=== PATIENT | male | born 1980 | race Two or more races ===

== ENCOUNTER 2020-03-06 13:11 | Emergency (ER) | payer OTHER, SELFPAY ==
[2020-03-06 13:26] VITALS: BP 122/76; PULSE 85; RESP 18; TEMP 36.6; O2SAT 98; BMI 31.7
--- NOTE | 2020-03-06 13:38 | XR_ITS ---
EXAMINATION: XR CHEST CLINICAL INFORMATION: Pain COMPARISON: Previous chest x-ray March 2016 TECHNIQUE: 2 views of the chest were obtained. FINDINGS: No significant abnormality is noted involving the heart, lungs, mediastinum, bony thorax or soft tissues. XR/XR chest 2V IMPRESSION: Unremarkable examination.
--- NOTE | 2020-03-06 13:38 | ECG_ITS ---
Test Reason : CHEST WALL PAIN Blood Pressure : / mmHG Vent. Rate : 060 BPM Atrial Rate : 060 BPM P-R Int : 142 ms QRS Dur : 084 ms QT Int : 426 ms P-R-T Axes : 036 002 019 degrees QTc Int : 426 ms Normal sinus rhythm Normal ECG When compared with ECG of 10-JAN-2020 13:52, No significant change was found Heart rate has decreased Referred By: Alexandre Small Electronically Signed By:PARKER KENNEDY MD
--- NOTE | 2020-03-06 13:41 | ED_ITS ---
HPI - Anxiety General Chief Complaint: Anxiety <LINDA Krishnamurthy Last Filed: 03/06/20 21:35> Stated Complaint: ANXIETY <LINDA Krishnamurthy Last Filed: 03/06/20 21:35> Time Seen by Provider: 03/06/20 13:38 <LINDA Krishnamurthy Last Filed: 03/06/20 21:35> History of Present Illness HPI narrative: Patient complains of several days of feeling very anxious, with of feeling of palpitations, chest pain with deep breath, episodes of shortness of breath accompanied by hyperventilation with some tingling in the fingertips and similar to many prior episodes of anxiety attacks He was recently started on a medication Zoloft for anxiety by his primary care doctor about a week ago and says that item it has not yet reduced his generalized anxiety He is not suicidal he has no feelings of self-harm or injury, no drugs or alcohol <LINDA Krishnamurthy Last Filed: 03/06/20 21:35> Related Data Home Medications: Previous Rx's Medication Instructions Recorded ketoconazole 2 % topical cream 1 applic TOPICAL DAILY 30 Days #30 03/02/20 g lorazepam 0.5 mg tablet 0.5 mg PO BEDTIME 7 Days #7 tab 03/02/20 pantoprazole 20 mg tablet,delayed 20 mg PO DAILY 30 Days #30 tab 03/02/20 release sertraline 50 mg tablet 50 mg PO DAILY 30 Days #30 tab 03/02/20 lorazepam [Ativan] 0.5 mg PO TID PRN #20 tab 03/06/20 <LINDA Krishnamurthy Last Filed: 03/06/20 21:35> Allergies/Adverse Reactions: Allergies Allergy/AdvReac Type Severity Reaction Status Date / Time No Known Allergies Allergy Unknown Verified 03/02/20 15:35 <LINDA Krishnamurthy Last Filed: 03/06/20 21:35> Review of Systems Review of Systems: Positive for anxiety chest pain and palpitations Negative for headache dizziness weakness fever chills fainting, no abdominal pain or vomiting, no skin rash no difficulty ambulating or speaking <LINDA Krishnamurthy Last Filed: 03/06/20 21:35> Yes all other systems are reviewed and are negative <LINDA Krishnamurthy Last Filed: 11/23/20 21:35> PMF[facility] Past Medical History Attestation statement: The following information was validated with the patient. <LINDA Krishnamurthy - Last Filed: 03/06/20 21:35> [facility] Narrative: Medical history is prior history of anxiety, he does smoke cigarettes <LINDA Krishnamurthy - Last Filed: 03/06/20 21:35> Family History Family History: Family History (Updated 03/02/20 @ 15:45 by Felix Junior PA-C) Mother Diabetes Hypertension Breast cancer Cirrhosis of liver Brother Cirrhosis of liver Father Cancer Esophageal cancer <LINDA Krishnamurthy - Last Filed: 03/06/20 21:35> Social History Social History: Social History (Updated 03/02/20 @ 15:46 by Felix Junior PA-C) Alcohol intake: unknown Smoking Status: Unknown if ever smoked Tobacco Type: Cigarette Substance Use Type: Marijuana <LINDA Krishnamurthy - Last Filed: 03/06/20 21:35> Physical Exam Vital Signs: Vital Signs: Last Vital Signs Temp 97.8 F 03/06/20 13:26 Pulse 85 03/06/20 13:26 Resp 18 03/06/20 13:26 BP 122/76 03/06/20 13:26 Pulse Ox 98 03/06/20 13:26 Body Mass Index 31.7 <LINDA Krishnamurthy - Last Filed: 03/06/20 21:35> Vital Signs: Last Vital Signs Temp 97.8 F 03/06/20 13:26 Pulse 85 03/06/20 13:26 Resp 18 03/06/20 13:26 BP 122/76 03/06/20 13:26 Pulse Ox 98 03/06/20 13:26 Body Mass Index 31.7 <Vincenzo Nicolas MD - Last Filed: 03/15/20 07:02> General appearance comfortable cooperative no acute distress A&O x3 The pharynx is clear, well hydrated The neck is supple The chest is clear to auscultation bilaterally with full symmetrical equal breath sounds, there is mild tenderness to the chest wall and pain is reproduced with a deep breath The heart rate and rhythm regular, no murmurs Abdomen soft nontender Extremities full range of motion x4 Neuro cranial nerves 2-12 intact as tested Gait and speech are normal and appropriate Motor is 5 over 5 times for and sensation is intact and symmetrical <LINDA Krishnamurthy - Last Filed: 03/06/20 21:35> Course Course Course Narrative: Patient with similar symptoms to prior episodes of anxiety attacks head EKG and chest x-ray done with no acute findings and was discharged with treatment for anxiety <LINDA Krishnamurthy - Last Filed: 03/06/20 21:35> I have reviewed the chart <Vincenzo Nicolas MD - Last Filed: 03/15/20 07:02> MDM - Anxiety ECG Data Attestation: I personally reviewed and interpreted this ECG as follows: <LINDA Krishnamurthy Last Filed: 03/06/20 21:35> Interpretation: EKG was normal sinus rhythm at a rate of 60 p.r. was 142 QRS was 84 QT was normal and no evidence of acute ischemic change <LINDA Krishnamurthy Last Filed: 03/06/20 21:35> Discharge Plan Discharge Clinical Impression: Anxiety <LINDA Krishnamurthy Last Filed: 03/06/20 21:35> Patient Disposition: Home, Self-Care <LINDA Krishnamurthy - Last Filed: 03/06/20 21:35> Additional Instructions: Your EKG and chest x-ray did not reveal any dangerous condition The symptoms are consistent with previous anxiety episodes so we are giving you Ativan as a rescue medication use only if needed continue the Zoloft prescribed by her doctors it may take several weeks to have an effect and may be need to be adjusted to maximum affect Return any concerns <LINDA Krishnamurthy Last Filed: 03/06/20 21:35> Prescriptions: New lorazepam [Ativan] 0.5 mg tablet 0.5 mg PO TID PRN (Reason: anxiety) Qty: 20 RF: 0 No Action sertraline [Zoloft] 50 mg tablet 50 mg PO DAILY 30 Days Qty: 30 RF: 1 ketoconazole 2 % cream 1 applic topical DAILY 30 Days Qty: 30 RF: 0 pantoprazole 20 mg tablet,delayed release (DR/EC) 20 mg PO DAILY 30 Days Qty: 30 RF: 3 lorazepam 0.5 mg tablet 0.5 mg PO BEDTIME 7 Days Qty: 7 RF: 0 <LINDA Krishnamurthy Last Filed: 03/06/20 21:35> Interventions: ED Discharge Assessment Last Done: 03/06/20 15:25 <LINDA Krishnamurthy - Last Filed: 03/06/20 21:35> Discharge Date/Time: 03/06/20 15:27 <LINDA Krishnamurthy - Last Filed: 03/06/20 21:35>
== END 2020-03-06 15:27 | disposition home or self-care (01) ==
PROVIDERS: Emergency Provider Emergency Medicine; PCP Physician Assistant
DX: F41.1 Generalized anxiety disorder (principal); F43.0 Acute stress reaction; F17.210 Nicotine dependence, cigarettes, uncomplicated; Z71.6 Tobacco abuse counseling; F12.90 Cannabis use, unspecified, uncomplicated; Z79.899 Other long term (current) drug therapy
CPT/HCPCS: 71046; 93005; 99283; 99284

== ENCOUNTER 2020-03-28 09:56 | Outpatient (REF) | payer OTHER, SELFPAY ==
[2020-03-28 11:28] LABS: MANUAL DIFF FLAG NO
[2020-03-28 11:41] LABS: Basophils Absolute Auto 0.1 X10*3/uL (0.0-0.2); Basophils Percent Auto 0.6 % (0-2); Eosinophils Absolute Auto 0.2 X10*3/uL (0.0-0.4); Eosinophils Percent Auto 2.2 % (0-4); Hematocrit 45.3 % (42-52); Hemoglobin 15.1 g/dl (14.0-18.0); Imm Gran Abs Auto 0.02 X10*3/uL (0.00-0.03); Imm Gran Pct Auto 0.2 % (0.0-0.4); Lymphocytes Absolute Auto 2.3 X10*3/uL (1.2-4.9); Lymphocytes Percent Auto 26.5 % (20-40); Mean Corpuscular HGB Conc 33.3 g/dl (31.0-36.0); Mean Corpuscular Hemoglobin 32.3 pg (27.0-33.0); Mean Corpuscular Volume 96.8 fL (80-98); Mean Platelet Volume 11.6 fL (9.4-12.4); Monocytes Absolute Auto 0.8 X10*3/uL (0.1-1.2); Monocytes Percent Auto 9.7 % (2-11); Neutrophils Absolute Auto 5.2 X10*3/uL (2.0-8.3); Neutrophils Percent Auto 60.8 % (45-73); Platelet Count 265 X10*3/uL (160-400); Red Blood Count 4.68 X10*6/uL (4.60-5.80); Red Cell Distribution Width 12.7 % (11.0-16.0); White Blood Count 8.6 X10*3/uL (4.8-10.8)
[2020-03-28 11:53] LABS: Estimated Average Glucose 91 mg/dL; Hemoglobin A1c % 4.8 %
[2020-03-28 12:16] LABS: Alanine Aminotransferase 117 U/L (0-40); Albumin Level 4.4 g/dL (3.5-5.0); Alkaline Phosphatase 57 U/L (39-117); Anion Gap 14 (12-20); Aspartate Amino Transferase 57 U/L (5-37); Bilirubin Direct 0.4 mg/dL (0.0-0.5); Bilirubin Total 0.9 mg/dL (0.0-1.0); Blood Urea Nitrogen 15 mg/dL (9-16); Calcium 9.1 mg/dL (8.4-10.2); Carbon Dioxide 25 mmol/L (22-29); Chloride 102 mmol/L (96-108); Cholesterol 148 mg/dL; Estimated Glomerular Filt Rate > 60; Glucose Fasting 92 mg/dL (60-99); HDL Cholesterol 37 mg/dL; LDL Cholesterol Calculated 97 mg/dl; Potassium 4.3 mmol/l (3.3-5.1); Sodium 137 mmol/L (135-145); Total Protein 7.5 g/dL (6.5-8.0); Triglycerides 73 mg/dL
[2020-03-28 12:30] LABS: Alanine Aminotransferase 118 U/L (0-40); Albumin Level 4.5 g/dL (3.5-5.0); Alkaline Phosphatase 59 U/L (39-117); Anion Gap 13 (12-20); Aspartate Amino Transferase 56 U/L (5-37); Blood Urea Nitrogen 15 mg/dL (9-16); Calcium 9.3 mg/dL (8.4-10.2); Carbon Dioxide 27 mmol/L (22-29); Chloride 102 mmol/L (96-108); Cholesterol 148 mg/dL; Estimated Glomerular Filt Rate > 60; Glucose Fasting 93 mg/dL (60-99); HDL Cholesterol 37 mg/dL; LDL Cholesterol Calculated 96 mg/dl; Potassium 4.2 mmol/l (3.3-5.1); Sodium 138 mmol/L (135-145); Total Protein 7.6 g/dL (6.5-8.0); Triglycerides 75 mg/dL
[2020-03-28 12:32] LABS: TSH reflex Free T4 0.73 mIU/mL (0.32-4.0)
[2020-03-28 12:37] LABS: Vitamin D 25-OH Total 7.4 ng/mL (>30)
[2020-03-29 08:51] LABS: Syphilis Screen Nonreactive (Nonreactive)
[2020-03-30 04:08] LABS: HBc Num1 0.08 S/CO (0.00-0.79); HIV AB/AG Nonreactive (Nonreactive); HIV Num 1 0.06 S/CO (0.00-0.99); Hepatitis B Core Antibody Nonreactive (Nonreactive); Hepatitis B Surface Antigen Negative (Negative)
[2020-03-30 04:34] LABS: HBS Num1 1.79 mIU/mL (0-7.99); ~HepC Num1 0.09 S/CO (0.00-0.79); ~Hepatitis B Surface Antibody NONREACTIVE (Nonreactive); ~Hepatitis C Antibody Nonreactive (Nonreactive)
[2020-04-04 18:21] LABS: Chlamydia Pneumoniae IgM <1:10 titer (<1:10); Chlamydia Pneumoniae Interp. Past Infection; Chlamydia Psittaci IgA <1:16 titer (<1:16); Chlamydia Psittaci IgG <1:64 titer (<1:64); Chlamydia Psittaci IgM <1:10 titer (<1:10); Chlamydia Trachomatis IgA <1:16 titer (<1:16); Chlamydia Trachomatis IgG <1:64 titer (<1:64); Chlamydia Trachomatis IgM <1:10 titer (<1:10)
== END 2020-03-28 09:57 | disposition home or self-care (01) ==
LOC: HO.LAB 09:56
PROVIDERS: PCP Physician Assistant; Visit Provider Physician Assistant
DX: Z20.828 Contact with and (suspected) exposure to other viral communicable diseases (principal); Z13.1 Encounter for screening for diabetes mellitus; F41.1 Generalized anxiety disorder; Z11.3 Encounter for screening for infections with a predominantly sexual mode of transmission; K27.9 Peptic ulcer, site unspecified, unspecified as acute or chronic, without hemorrhage or perforation; Z13.29 Encounter for screening for other suspected endocrine disorder
CPT/HCPCS: 36415; 80053; 80061; 80076; 82248; 82306; 83036; 84443; 85025; 86631; 86632; 86704; 86706; 86780; 86803; 87340; 87389; U0003

== ENCOUNTER 2020-04-09 21:31 | Emergency (ER) | payer OTHER, SELFPAY ==
--- NOTE | 2020-04-09 | ECG_ITS ---
Test Reason : CHEST/EPIGASTRIC PAIN Blood Pressure : / mmHG Vent. Rate : 075 BPM Atrial Rate : 075 BPM P-R Int : 156 ms QRS Dur : 078 ms QT Int : 424 ms P-R-T Axes : 053 005 006 degrees QTc Int : 473 ms Normal sinus rhythm Normal ECG When compared with ECG of 06-MAR-2020 14:53, No significant change was found Referred By: Generic ED Physician Electronically Signed By:TOOTIE SALAZAR
[2020-04-09 21:42] VITALS: BP 105/69; PULSE 89; RESP 16; TEMP 36.9; O2SAT 97; BMI 28.7
[2020-04-09 22:59] LABS: Basophils Percent Auto 0.4 % (0-2); Eosinophils Absolute Auto 0.1 X10*3/uL (0.0-0.4); Eosinophils Percent Auto 0.8 % (0-4); Hematocrit 47.6 % (42-52); Hemoglobin 15.9 g/dl (14.0-18.0); Imm Gran Abs Auto 0.03 X10*3/uL (0.00-0.03); Imm Gran Pct Auto 0.3 % (0.0-0.4); Lymphocytes Absolute Auto 2.4 X10*3/uL (1.2-4.9); Lymphocytes Percent Auto 24.9 % (20-40); MANUAL DIFF FLAG NO; Mean Corpuscular HGB Conc 33.4 g/dl (31.0-36.0); Mean Corpuscular Hemoglobin 32.6 pg (27.0-33.0); Mean Corpuscular Volume 97.5 fL (80-98); Mean Platelet Volume 10.7 fL (9.4-12.4); Monocytes Percent Auto 10.3 % (2-11); Neutrophils Percent Auto 63.3 % (45-73); Platelet Count 231 X10*3/uL (160-400); Red Blood Count 4.88 X10*6/uL (4.60-5.80); Red Cell Distribution Width 12.8 % (11.0-16.0); White Blood Count 9.5 X10*3/uL (4.8-10.8)
[2020-04-09 23:00] VITALS: BP 124/76; PULSE 76; RESP 14; O2SAT 97
--- NOTE | 2020-04-09 23:15 | ED.ABDPAIN ---
HPI - Abdominal Pain General Chief Complaint: Abdominal Pain Stated Complaint: abdominal pain Time Seen by Provider: 04/09/20 22:04 Source: patient Mode of arrival: ambulatory History of Present Illness HPI narrative: This is a 39-year-old male who presents with complaints of worsening epigastric discomfort over the past 2-3 days that he attributes to ongoing stressors in his life. He states that he was recently started on ulcer medication and based on description sounds like this is likely Carafate but states that due to his ongoing separation from his significant other he has been unable to have access to the medication. He denies alcohol use or drug use other than marijuana. He denies any hematemesis or melena, denies fevers, chills, nausea. Related Data Home Medications Medication Instructions Recorded Confirmed ibuprofen 600 mg tablet 600 mg PO Q6H PRN 03/28/20 03/28/20 Previous Rx's Medication Instructions Recorded ketoconazole 2 % topical cream 1 applic TOPICAL DAILY 30 Days #30 03/02/20 g pantoprazole 20 mg tablet,delayed 20 mg PO DAILY 30 Days #30 tab 03/02/20 release lorazepam 0.5 mg tablet 0.5 mg PO TID PRN #20 tab 03/28/20 sucralfate 1 gram tablet 1 g PO BID 10 Days #20 tab 03/28/20 omeprazole 40 mg PO BID 30 Days #60 cap 04/10/20 Allergies Allergy/AdvReac Type Severity Reaction Status Date / Time No Known Allergies Allergy Unknown Verified 04/09/20 21:41 Review of Systems Review of Systems Pertinent positives and negatives as stated in the HPI and 10 point review of systems is otherwise negative. Physical Exam Vital Signs: Vital Signs: Last Vital Signs Temp 98.5 F 04/09/20 21:42 Pulse 76 04/09/20 23:00 Resp 14 04/09/20 23:00 BP 124/76 04/09/20 23:00 Pulse Ox 97 04/09/20 23:00 Body Mass Index 28.7 VITAL SIGNS: Reviewed. GENERAL: Well developed, well nourished, in no acute distress. HEAD: Normocephalic/atraumatic, EYES: PERRLA, EOMI intact without pain EARS: Ext canals without abnormality, TMs non-bulging and non-erythematous NOSE: Nares patent bilateral NECK: Supple, no adenopathy LUNGS: Normal breath sounds. No adventitious sounds or accessory muscle use. SpO2<97> CARDIOVASCULAR: Regular rate and rhythm without noted murmurs, no JVD or lower extremity edema. ABDOMEN: Soft, tenderness to the epigastrium area without rebound, non-distended with bowel sounds. No rigidity. No guarding. No palpable masses or hernias noted NEUROLOGIC: Alert and oriented x 4. Course Course Course Narrative: This is a 39-year-old male with history and clinical presentation most consistent with likely gastritis and +/- ulcer and no evidence of bleeding. Will evaluate for alternative etiologies such as pancreatitis or gallbladder disease but feel that this is less likely. -labs, a panel, UA, PRATHER, GI cocktail, Pepcid On re-evaluation patient has had improvement of his symptoms and all investigations were reviewed without any acute findings. All results and findings discussed with patient at bedside. MDM - Abdominal Pain Lab Data Result diagrams: 04/09/20 22:54 04/09/20 22:54 Labs: Lab Results 04/09/20 04/09/20 04/09/20 Range/Units 22:54 22:54 22:54 WBC 9.5 (4.8-10.8) X10*3/uL RBC 4.88 (4.60-5.80) X10*6/uL Hgb 15.9 (14.0-18.0) g/dl Hct 47.6 (42-52) % MCV 97.5 (80-98) fL MCH 32.6 (27.0-33.0) pg MCHC 33.4 (31.0-36.0) g/dl RDW 12.8 (11.0-16.0) % Plt Count 231 (160-400) X10*3/uL MPV 10.7 (9.4-12.4) fL Immature Gran % (Auto) 0.3 (0.0-0.4) % Neut % (Auto) 63.3 (45-73) % Lymph % (Auto) 24.9 (20-40) % [place] % (Auto) 10.3 (2-11) % Eos % (Auto) 0.8 (0-4) % Baso % (Auto) 0.4 (0-2) % Lymph # (Auto) 2.4 (1.2-4.9) X10*3/uL [place] # (Auto) 1.0 (0.1-1.2) X10*3/uL Eos # (Auto) 0.1 (0.0-0.4) X10*3/uL Baso # (Auto) 0.0 (0.0-0.2) X10*3/uL Abs Immat Gran (auto) 0.03 (0.00-0.03) X10*3/uL Absolute Neuts (auto) 6.0 (2.0-8.3) X10*3/uL Absolute Nucleated RBC 0.000 (0.0-0.012) X10*3/uL Nucleated RBC % (auto) 0.0 (0.0-0.2) /100WBC Sodium 139 (135-145) mmol/L Potassium 4.1 (3.3-5.1) mmol/l Chloride 104 (96-108) mmol/L Carbon Dioxide 24 (22-29) mmol/L Anion Gap 15 (12-20) BUN 16 (9-16) mg/dL Creatinine 0.88 (0.5-1.4) mg/dL Estim Creat Clear Calc 117.7 Estimated GFR > 60 Random Glucose 97 (60-115) mg/dL Calcium 9.4 (8.4-10.2) mg/dL Total Bilirubin 1.0 (0.0-1.0) mg/dL AST 65 H (5-37) U/L ALT 140 H (0-40) U/L Alkaline Phosphatase 59 (39-117) U/L Total Protein 7.8 (6.5-8.0) g/dL Albumin 4.8 (3.5-5.0) g/dL Lipase 15 (8-78) U/L Urine Color Urine Appearance Urine pH (5.0-8.0) Ur Specific [place] (1.005-1.025) Urine Protein (NEG-TRACE) MG/DL Urine Glucose (UA) (NEG) MG/DL Urine Ketones (NEG) MG/DL Urine Blood (NEG) Urine Nitrite (NEG) Ur Leukocyte Esterase (NEG) Urine RBC (0) /HPF Urine WBC (0-4) /HPF Ur Squamous Epith Cells /LPF Urine Bacteria /LPF Urine Mucus /LPF Urine Opiates Screen (Not Detect) Ur Barbiturates Screen (Not Detect) Ur Phencyclidine Scrn (Not Detect) Ur Amphetamines Screen (Not Detect) U Benzodiazepines Scrn (Not Detect) Urine Cocaine Screen (Not Detect) U Marijuana (THC) Screen (Not Detect) Ethyl Alcohol < 10 mg/dL 04/09/20 04/09/20 Range/Units 23:42 23:42 WBC (4.8-10.8) X10*3/uL RBC (4.60-5.80) X10*6/uL Hgb (14.0-18.0) g/dl Hct (42-52) % MCV (80-98) fL MCH (27.0-33.0) pg MCHC (31.0-36.0) g/dl RDW (11.0-16.0) % Plt Count (160-400) X10*3/uL MPV (9.4-12.4) fL Immature Gran % (Auto) (0.0-0.4) % Neut % (Auto) (45-73) % Lymph % (Auto) (20-40) % [place] % (Auto) (2-11) % Eos % (Auto) (0-4) % Baso % (Auto) (0-2) % Lymph # (Auto) (1.2-4.9) X10*3/uL [place] # (Auto) (0.1-1.2) X10*3/uL Eos # (Auto) (0.0-0.4) X10*3/uL Baso # (Auto) (0.0-0.2) X10*3/uL Abs Immat Gran (auto) (0.00-0.03) X10*3/uL Absolute Neuts (auto) (2.0-8.3) X10*3/uL Absolute Nucleated RBC (0.0-0.012) X10*3/uL Nucleated RBC % (auto) (0.0-0.2) /100WBC Sodium (135-145) mmol/L Potassium (3.3-5.1) mmol/l Chloride (96-108) mmol/L Carbon Dioxide (22-29) mmol/L Anion Gap (12-20) BUN (9-16) mg/dL Creatinine (0.5-1.4) mg/dL Estim Creat Clear Calc Estimated GFR Random Glucose (60-115) mg/dL Calcium (8.4-10.2) mg/dL Total Bilirubin (0.0-1.0) mg/dL AST (5-37) U/L ALT (0-40) U/L Alkaline Phosphatase (39-117) U/L Total Protein (6.5-8.0) g/dL Albumin (3.5-5.0) g/dL Lipase (8-78) U/L Urine Color YELLOW Urine Appearance CLEAR Urine pH 6.0 (5.0-8.0) Ur Specific [place] >= 1.030 H (1.005-1.025) Urine Protein TRACE (NEG-TRACE) MG/DL Urine Glucose (UA) NEG (NEG) MG/DL Urine Ketones 40 (NEG) MG/DL Urine Blood TRACE (NEG) Urine Nitrite NEG (NEG) Ur Leukocyte Esterase NEG (NEG) Urine RBC 1-4 (0) /HPF Urine WBC 1-4 (0-4) /HPF Ur Squamous Epith Cells 1+ /LPF Urine Bacteria 1+ /LPF Urine Mucus 2+ /LPF Urine Opiates Screen Not Detected (Not Detect) Ur Barbiturates Screen Not Detected (Not Detect) Ur Phencyclidine Scrn Not Detected (Not Detect) Ur Amphetamines Screen Not Detected (Not Detect) U Benzodiazepines Scrn Not Detected (Not Detect) Urine Cocaine Screen Not Detected (Not Detect) U Marijuana (THC) Screen POSITIVE H (Not Detect) Ethyl Alcohol mg/dL Discharge Plan Discharge Clinical Impression: Gastritis Patient Disposition: Home, Self-Care Instructions: Gastritis (ED), Diet for Stomach Ulcers and Gastritis (ED) Additional Instructions: - Please do not hesitate to return should you experience any acute worsening such as vomiting blood, worsening abdominal pain. - You should avoid ibuprofen, Motrin, Aleve, Naprosyn at present as this can make your symptoms worse. - stop taking the pantoprazole Prescriptions: New omeprazole 40 mg capsule,delayed release(DR/EC) 40 mg PO BID 30 Days Qty: 60 RF: 0 No Action ketoconazole 2 % cream 1 applic topical DAILY 30 Days Qty: 30 RF: 0 pantoprazole 20 mg tablet,delayed release (DR/EC) 20 mg PO DAILY 30 Days Qty: 30 RF: 3 ibuprofen 600 mg tablet 600 mg PO Q6H PRN (Reason: pain) RF: 0 lorazepam [Ativan] 0.5 mg tablet 0.5 mg PO TID PRN (Reason: anxiety) Qty: 20 RF: 1 sucralfate [Carafate] 1 gram tablet 1 g PO BID 10 Days Qty: 20 RF: 1 Referrals: Ricardo Doe MD [Physician] - 2 days (Please evaluate this patient for suspected PUD. While evaluated here in the emergency department he was started on twice daily omeprazole and instructed to stop NSAIDs.) [facility] Past Medical History Source: nursing notes reviewed Surgical History No history of previous surgery Family History Family History Mother Diabetes Hypertension Breast cancer Cirrhosis of liver Brother Cirrhosis of liver Father Cancer Esophageal cancer Social History Social History Alcohol intake: never Smoking Status: Current every day smoker Tobacco Type: Cigarette Substance Use Type: Marijuana Advance Directives: No Advance Directives Information Provided: No
[2020-04-09 23:24] LABS: Ethanol < 10 mg/dL
[2020-04-09 23:29] LABS: Alanine Aminotransferase 140 U/L (0-40); Albumin Level 4.8 g/dL (3.5-5.0); Alkaline Phosphatase 59 U/L (39-117); Anion Gap 15 (12-20); Aspartate Amino Transferase 65 U/L (5-37); Blood Urea Nitrogen 16 mg/dL (9-16); Calcium 9.4 mg/dL (8.4-10.2); Carbon Dioxide 24 mmol/L (22-29); Chloride 104 mmol/L (96-108); Creatinine Clr Calc Pharmacy 117.7; Estimated Glomerular Filt Rate > 60; Glucose Random 97 mg/dL (60-115); Lipase 15 U/L (8-78); Potassium 4.1 mmol/l (3.3-5.1); Sodium 139 mmol/L (135-145); Total Protein 7.8 g/dL (6.5-8.0)
[2020-04-09] MEDS: Famotidine/PF 20 MG/2 ML VIAL IVPUSH (23:43)
[2020-04-09] MEDS: Lidocaine HCl Viscous 2 % 15 ML SOLUTION 10 ML MUCOUS MEM (23:43)
[2020-04-09] MEDS: Magnesium Hydrox/Alum Hydrox 30 ML ORAL.SUSP PO (23:43)
[2020-04-09 23:54] LABS: Glucose Urine UA NEG (NEG); Leukocyte Esterase Urine NEG (NEG); Nitrite Urine NEG (NEG); Specific Gravity - Urine >= 1.030 (1.005-1.025); Urine Blood TRACE (NEG); Urine Ketones 40 MG/DL (NEG); Urine Protein TRACE MG/DL (NEG-TRACE)
[2020-04-09 23:55] LABS: Appearance Urine CLEAR; Color Urine YELLOW
[2020-04-10 00:01] LABS: Bacteria Urine 1+ /LPF; Mucus Urine 2+ /LPF; Squamous Epithelial Cell Urine 1+ /LPF
[2020-04-10 00:21] LABS: Amphetamine Screen Urine Not Detected (Not Detect); Barbiturates, Urine Not Detected (Not Detect); Benzodiazepines Screen Urine Not Detected (Not Detect); Cannabinoid Screen Urine POSITIVE (Not Detect); Cocaine Screen Urine Not Detected (Not Detect); Opiate Screen Urine Not Detected (Not Detect); Phencyclidine Screen Urine Not Detected (Not Detect)
[2020-04-10 01:10] VITALS: BP 113/70; PULSE 64; RESP 16; O2SAT 98
--- NOTE | 2020-04-10 01:11 | PC.NURSE ---
PT REPORTS EPIGASTRIC PAIN IMPROVED, NOW 07/22. PT DRANK A CAN OF SONALI ALISSON, NO NAUSEA OR VOMITING.
== END 2020-04-10 01:21 | disposition home or self-care (01) ==
PROVIDERS: Emergency Provider Student in an Organized Health Care Education/Training Program
DX: R10.13 Epigastric pain (principal)
CPT/HCPCS: 36415; 80053; 80307; 80320; 81001; 83690; 85025; 93005; 96374; 99284

== ENCOUNTER 2020-05-03 17:05 | Outpatient (REF) | payer OTHER, SELFPAY | END 2020-05-03 17:06 | disposition home or self-care (01) | LOC: HO.WFDLNP 17:05 | PROVIDERS: Visit Provider Internal Medicine | DX: Z20.822 Contact with and (suspected) exposure to COVID-19 (principal) | CPT/HCPCS: C9803; U0003 ==

== ENCOUNTER 2020-07-20 13:19 | Outpatient (REF) | payer OTHER, SELFPAY ==
[2020-07-20 13:53] LABS: COVID-19 Test Negative (Negative)
== END 2020-07-20 13:20 | disposition home or self-care (01) ==
LOC: HO.LAB 13:19
PROVIDERS: Visit Provider Internal Medicine
DX: Z20.822 Contact with and (suspected) exposure to COVID-19 (principal)
CPT/HCPCS: 36415; 87635; C9803

== ENCOUNTER 2020-08-12 17:10 | Emergency (ER) | payer OTHER, SELFPAY ==
[2020-08-12 17:16] VITALS: BP 116/59; PULSE 57; RESP 18; TEMP 36.6; O2SAT 97; BMI 25.8
--- NOTE | 2020-08-12 17:50 | ED.EYEPROB ---
HPI - Eye Problem General Chief complaint: Eye Problems Stated complaint: eye infection Time Seen by Provider: 08/12/20 17:26 Source: patient Mode of arrival: ambulatory Limitations: no limitations History of Present Illness HPI Narrative: 39-year-old male with no significant past medical history presents with 3 days of upper eyelid swelling and pain. States that it started off as a small area of swelling, and then spread over to the rest of his eyelid. He has been using warm compresses, and states the swelling is in his line of vision. He does not report any visual changes, denies fevers, chills, nasal congestion sinus pain, ear pain, difficulty swallowing, pain on ocular movement, double vision, or any other concerning symptoms. He does not use contact lenses, denies risk of foreign body, glaucoma, or trauma. MD chief complaint: eye redness Onset (ago): day(s) (3) Onset description: gradual Duration: constant Location: left eye Eye Symptoms: redness Place: home Mechanism: none Severity: moderate Severity scale (1-10): 5 If Pain, Quality: burning and aching Associated symptoms: none Treatments Prior to Arrival: other (Warm compresses) Related Data Patient tetanus UTD: No Home Medications Medication Instructions Recorded Confirmed ibuprofen 600 mg tablet 600 mg PO Q6H PRN 03/28/20 03/28/20 Previous Rx's Medication Instructions Recorded ketoconazole 2 % topical cream 1 applic TOPICAL DAILY 30 Days #30 03/02/20 g pantoprazole 20 mg tablet,delayed 20 mg PO DAILY 30 Days #30 tab 03/02/20 release lorazepam 0.5 mg tablet 0.5 mg PO TID PRN #20 tab 03/28/20 sucralfate 1 gram tablet 1 g PO BID 10 Days #20 tab 03/28/20 omeprazole 40 mg PO BID 30 Days #60 cap 04/10/20 Allergies Allergy/AdvReac Type Severity Reaction Status Date / Time No Known Allergies Allergy Unknown Verified 04/09/20 21:41 Review of Systems Review of Systems: Constitutional: No Fever, No Chills ENT/Mouth: No Ear Pain, No Hoarseness, No sore throat Eyes: Left eyelid pain and swelling, No Eye Pain, No Redness, No Foreign Body Cardiovascular: No Chest Pain, No SOB Respiratory: No Cough, No Dyspnea Gastrointestinal: No Nausea, No Vomiting, No Diarrhea, No abdominal Pain Genitourinary: No Dysuria, No Hematuria Musculoskeletal: No joint pain, No Myalgias, No Joint Swelling Skin: No Skin lacerations, No rash Neuro: No Weakness, No Numbness, No Paresthesias, No Loss of Consciousness, No Dizziness, No Headache Psych: No Anxiety/Panic, No Depression Heme/Lymph: no easy bruising, no Lymphadenopathy Endocrine: No Polyuria, No Polydipsia Yes all other systems are reviewed and are negative [facility] Past Medical History Attestation statement: The following information was validated with the patient. Source: old records reviewed Medical History (Updated 08/12/20 @ 17:50 by Annita Almonte NP) Ulcer Surgical History No history of previous surgery Family History Family History Mother Diabetes Hypertension Breast cancer Cirrhosis of liver Brother Cirrhosis of liver Father Cancer Esophageal cancer Social History Social History Alcohol intake: never Smoking Status: Current every day smoker Tobacco Type: Cigarette Substance Use Type: Marijuana Advance Directives: No Advance Directives Information Provided: Yes Physical Exam Vital Signs: Vital Signs: Last Vital Signs Temp 97.9 F 08/12/20 17:16 Pulse 57 08/12/20 17:16 Resp 18 08/12/20 17:16 BP 116/59 L 08/12/20 17:16 Pulse Ox 97 08/12/20 17:16 Body Mass Index 25.8 Appearance: Alert. Oriented X3. No acute distress. Eyes: Pupils equal, round and reactive to light. EOMI, no pain on extraocular movement, left eyelid edematous, erythematous, consistent with hordeolum. Funduscopic exam is normal. ENT: Pharynx normal. Neck: Normal inspection. Neck supple. CVS: Normal heart rate and rhythm. Pulses normal. Respiratory: No respiratory distress. Breath sounds normal. Abdomen: Soft and nontender. Skin: Skin warm and dry. Normal skin color. Normal skin turgor. Extremities: No lower extremity edema. Neuro: No motor deficit. No sensory deficit. Course Course Course Narrative: 39-year-old male presents with 3 days left eyelid swelling, progressively getting worse. He has been using warm compresses with poor effect. Funduscopic exam is normal, PERRLA, EOMI, sclera nonicteric, conjunctiva non erythematous. At this time I do not feel it necessary for fluorescein testing as there is low risk for foreign body, no change in vision. Plan is for erythromycin eye ointment, Keflex, and update Tdap vaccine. Patient verbalized understanding of and agrees to plan of care discharge home. MDM - Eye Problem MDM Narrative Medical decision making narrative: chalazion, hordeolum, blepharitis Differential Diagnosis Differential diagnosis: Likely periorbital cellulitis Medical Records Attestation: I reviewed the patient's medical records. Discharge Plan Discharge Clinical Impression: Edema of left eyelid Hordeolum Qualifiers: Hordeolum type: externum Laterality: left Eyelid: upper Qualified Code(s): H00.014 - Hordeolum externum left upper eyelid Patient Disposition: Home, Self-Care Instructions: [place] (ED) Additional Instructions: You were evaluated for left eyelid swelling and pain. You have a hordeolum, and eyelid cellulitis. Please use erythromycin eye ointment every 4 hours while awake for the next 5 days. Please wash your hand before and after applying this eye ointment. Please take Keflex 500 mg every 8 hours for the next 7 days. We updated your Tdap vaccine. If symptoms persist, please follow-up with Optometry. I gave you phone number for Dr. Cline. Thank you for choosing this emergency department for evaluation. Please follow-up with primary care physician as needed. Return to the emergency department for any new, concerning, or worsening symptoms. Prescriptions: No Action omeprazole 40 mg capsule,delayed release(DR/EC) 40 mg PO BID 30 Days Qty: 60 RF: 0 ketoconazole 2 % cream 1 applic topical DAILY 30 Days Qty: 30 RF: 0 pantoprazole 20 mg tablet,delayed release (DR/EC) 20 mg PO DAILY 30 Days Qty: 30 RF: 3 ibuprofen 600 mg tablet 600 mg PO Q6H PRN (Reason: pain) RF: 0 lorazepam [Ativan] 0.5 mg tablet 0.5 mg PO TID PRN (Reason: anxiety) Qty: 20 RF: 1 sucralfate [Carafate] 1 gram tablet 1 g PO BID 10 Days Qty: 20 RF: 1 Referrals: Noe Cline [Physician] - 2 days (Left upper eyelid hordeolum) Interventions: ED Discharge Assessment Last Done: 08/12/20 18:16 Discharge Date/Time: 08/12/20 18:21
[2020-08-12] MEDS: Erythromycin Base 0.5% Oph Oin 1 GM TUBE 1 CM EYE-LEFT (18:05)
[2020-08-12] MEDS: Diphth,Pertus(ACell),Tet Adult 0.5 ML SYRINGE IM (18:05)
[2020-08-12] MEDS: cephALEXin 500 MG CAPSULE PO (18:05)
== END 2020-08-12 18:21 | disposition home or self-care (01) ==
PROVIDERS: Emergency Provider Emergency Medicine
DX: H00.014 Hordeolum externum left upper eyelid (principal); H57.12 Ocular pain, left eye; F17.210 Nicotine dependence, cigarettes, uncomplicated; Z71.6 Tobacco abuse counseling; F12.90 Cannabis use, unspecified, uncomplicated
CPT/HCPCS: 90471; 90715; 99283

== ENCOUNTER 2020-09-05 09:05 | Outpatient (REF) | payer OTHER, SELFPAY ==
--- NOTE | ~2020-09-05 | XR_ITS ---
EXAMINATION: XR HAND, RIGHT XR HAND, LEFT CLINICAL INFORMATION: Pain. COMPARISON: None TECHNIQUE: AP, oblique, and lateral views of the right and left hand. FINDINGS: Right Hand: No fracture or dislocation. Normal carpal alignment. No significant joint space narrowing or marginal osteophytes. No osseous erosion. No periarticular osteopenia. No abnormal soft tissue calcification. Left Hand: No fracture or dislocation. Normal carpal alignment. No significant joint space narrowing or marginal osteophytes. No osseous erosion. No periarticular osteopenia. No abnormal soft tissue calcification. XR/XR hand LT 2V IMPRESSION: Right Hand: Unremarkable examination. Left Hand: Unremarkable examination.
--- NOTE | ~2020-09-05 | XR_ITS ---
EXAMINATION: XR HAND, RIGHT XR HAND, LEFT CLINICAL INFORMATION: Pain. COMPARISON: None TECHNIQUE: AP, oblique, and lateral views of the right and left hand. FINDINGS: Right Hand: No fracture or dislocation. Normal carpal alignment. No significant joint space narrowing or marginal osteophytes. No osseous erosion. No periarticular osteopenia. No abnormal soft tissue calcification. Left Hand: No fracture or dislocation. Normal carpal alignment. No significant joint space narrowing or marginal osteophytes. No osseous erosion. No periarticular osteopenia. No abnormal soft tissue calcification. XR/XR hand RT 2V IMPRESSION: Right Hand: Unremarkable examination. Left Hand: Unremarkable examination.
[2020-09-05 10:17] LABS: C Reactive Protein 0.04 mg/dL (< or = 0.50)
[2020-09-05 10:58] LABS: Rheumatoid Factor < 15.0 IU/mL (<15.0)
[2020-09-07 13:47] LABS: Anti Nuclear Antibody Screen NEGATIVE (NEGATIVE)
== END 2020-09-05 09:06 | disposition home or self-care (01) ==
LOC: HO.LAB 09:05
PROVIDERS: PCP Physician Assistant; Visit Provider Physician Assistant
DX: M79.641 Pain in right hand (principal); M79.642 Pain in left hand
CPT/HCPCS: 36415; 73120; 86038; 86039; 86140; 86431

== ENCOUNTER 2020-12-19 11:27 | Outpatient (REF) | payer OTHER, SELFPAY ==
[2020-12-19 12:41] LABS: Alanine Aminotransferase 45 U/L (0-40); Albumin Level 4.4 g/dL (3.5-5.0); Alkaline Phosphatase 60 U/L (39-117); Anion Gap 11 (12-20); Aspartate Amino Transferase 31 U/L (5-37); Bilirubin Total 0.4 mg/dL (0.0-1.0); Blood Urea Nitrogen 18 mg/dL (9-16); Calcium 9.5 mg/dL (8.4-10.2); Carbon Dioxide 26 mmol/L (22-29); Chloride 107 mmol/L (96-108); Cholesterol 176 mg/dL; Estimated Glomerular Filt Rate > 60; Glucose Fasting 90 mg/dL (60-99); HDL Cholesterol 47 mg/dL; LDL Cholesterol Calculated 110 mg/dl; Potassium 4.3 mmol/L (3.3-5.1); Sodium 140 mmol/L (135-145); Total Protein 7.2 g/dL (6.5-8.0); Triglycerides 95 mg/dL
[2020-12-19 13:09] LABS: Prostate Specific Antigen Scr 0.22 ng/mL (<0.05-4.0); TSH reflex Free T4 0.65 uIU/mL (0.32-4.0)
[2020-12-19 13:32] LABS: Estimated Average Glucose 91 mg/dL; Hemoglobin A1c % 4.8 %
== END 2020-12-19 11:28 | disposition home or self-care (01) ==
LOC: HO.LAB 11:27
PROVIDERS: PCP Physician Assistant; Visit Provider Physician Assistant
DX: Z12.5 Encounter for screening for malignant neoplasm of prostate (principal); Z13.29 Encounter for screening for other suspected endocrine disorder; Z13.220 Encounter for screening for lipoid disorders
CPT/HCPCS: 36415; 80053; 80061; 83036; 84153; 84443

== ENCOUNTER 2021-01-11 10:25 | Outpatient (REF) | payer OTHER, SELFPAY ==
--- NOTE | 2021-01-11 10:28 | EMG_ITS ---
Bilateral median and ulnar motor and sensory studies were performed. Bilateral radial sensory studies were performed and paraspinal muscles were tested. IMPRESSION: 1. Mild bilateral ulnar neuropathy across cubital tunnel. 2. Mild right median neuropathy across carpal tunnel. MD LEONARDO Hirsch/CHARLI / [id number]
== END 2021-01-11 10:26 | disposition home or self-care (01) ==
LOC: HO.NEURO 10:25
PROVIDERS: PCP Physician Assistant; Visit Provider Physician Assistant
DX: G56.00 Carpal tunnel syndrome, unspecified upper limb (principal)
CPT/HCPCS: 95886; 95911

== ENCOUNTER → 2021-01-30 14:46 | Outpatient (BNVA) | payer OTHER, SELFPAY | PROVIDERS: Visit Provider Orthopaedic Surgery | DX: G56.01 Carpal tunnel syndrome, right upper limb (principal); G56.23 Lesion of ulnar nerve, bilateral upper limbs | CPT/HCPCS: 99202 ==

== ENCOUNTER 2021-02-12 05:59 | Day surgery (SDC) | payer OTHER, SELFPAY ==
--- NOTE | 2021-02-09 09:10 | P.CONAN_ITS ---
Documented by User: Iman Lerma NP 02/09/21 09:11 HPI - Anesthesia Eval Consult details Narrative: 40yo M for Right Carpal Tunnel Release, Cubital Tunnel vs Transposition PMFSH Active Problems Active Problems: All Active Problems (Updated 02/02/21 @ 14:23 by Vandana Avelar RN) PUD (peptic ulcer disease) (Acute) Screening for hypothyroidism (Acute) Screening for diabetes mellitus (DM) (Acute) Screening for hypercholesterolemia (Acute) Tinea pedis (Acute) MDD (major depressive disorder) (Acute) NATALIE (generalized anxiety disorder) (Acute) Exposure to COVID-19 virus (Acute) Screening for STD (sexually transmitted disease) (Acute) Hordeolum (Acute) Bilateral hand pain (Acute) CTS (carpal tunnel syndrome) (Acute) Annual physical exam (Acute) NATALIE (generalized anxiety disorder) (Acute) Median nerve neuropathy (Acute) Carpal tunnel syndrome of right wrist (Acute) Cubital tunnel syndrome on right (Acute) Cubital tunnel syndrome on left (Acute) Past Medical History Medical History Anxiety and depression Asthma GI bleed PUD (peptic ulcer disease) Ulcer Family History Family History Mother Diabetes Hypertension Breast cancer Cirrhosis of liver Brother Cirrhosis of liver Father Cancer Esophageal cancer Surgical History Surgical History (Updated 02/12/21 @ 08:27 by Ana Marley MD) History of esophagogastroduodenoscopy (EGD) History of testicular surgery Social History Social History (Updated 02/12/21 @ 08:27 by Ana Marley MD) Housing: Apartment Alcohol intake: never Patient Tobacco Use Status: Never used Tobacco e-Cigarette/Vaping Use: Never Used Second Hand Smoke Exposure: No Use of substances other than those prescribed or required for medical reasons: Yes Substance Use Type: Marijuana Last Used Substance: Days (ago) Are you DNR?: No Advance Directives: No Advance Directives Information Provided: Yes Recently lost weight without trying: No Nutrition Risks: No Nutritional Risk service: No Current occupational status: unemployed 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 Meds Allergies Allergy/AdvReac Type Severity Reaction Status Date / Time No Known Allergies Allergy Unknown Verified 02/02/21 14:23 Home Medications Medication Instructions Recorded Confirmed Last Taken Type ibuprofen 600 mg tablet 600 mg PO Q6H PRN 03/28/20 02/02/21 Unknown History sertraline 25 mg tablet 1 tab PO DAILY 02/02/21 02/02/21 Unknown History Exam Exam Date and Time: February 09, 2021 0910 Pertinent Lab Results Pertinent Lab Results: Laboratory Tests 04/09/20 12/19/20 22:54 11:53 WBC 9.5 Hgb 15.9 Hct 47.6 Plt Count 231 Sodium 140 Potassium 4.3 Chloride 107 Carbon Dioxide 26 BUN 18 H Creatinine 0.96 Narrative Narrative: EKG 03/2020 Vent. Rate : 075 BPM ? ? Atrial Rate : 075 BPM ?? P-R Int : 156 ms? QRS Dur : 078 ms ? ? QT Int : 424 ms ? ? ? P-R-T Axes : 053 005 006 degrees ?? QTc Int : 473 ms ? Normal sinus rhythm Normal ECG When compared with ECG of 06-MAR-2020 14:53, No significant change was found Assessment and Plan Assessment Anesthesia Assessment: Chart Reviewed Documented by User: Ana Marley MD 02/12/21 08:29 [facility] Past Medical History Medical History Anxiety and depression Asthma GI bleed PUD (peptic ulcer disease) Ulcer Family History Family History Mother Diabetes Hypertension Breast cancer Cirrhosis of liver Brother Cirrhosis of liver Father Cancer Esophageal cancer Family history of problems with anesthesia: No Surgical History Surgical History (Updated 02/12/21 @ 08:27 by Ana Marley MD) History of esophagogastroduodenoscopy (EGD) History of testicular surgery History of Problems with Anesthesia: No Social History Social History (Updated 02/12/21 @ 08:27 by Ana Marley MD) Housing: Apartment Alcohol intake: never Patient Tobacco Use Status: Never used Tobacco e-Cigarette/Vaping Use: Never Used Second Hand Smoke Exposure: No Use of substances other than those prescribed or required for medical reasons: Yes Substance Use Type: Marijuana Last Used Substance: Days (ago) Are you DNR?: No Advance Directives: No Advance Directives Information Provided: Yes Recently lost weight without trying: No Nutrition Risks: No Nutritional Risk service: No Current occupational status: unemployed 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 Meds Allergies Allergy/AdvReac Type Severity Reaction Status Date / Time No Known Allergies Allergy Unknown Verified 02/02/21 14:23 Home Medications Medication Instructions Recorded Confirmed Last Taken Type ibuprofen 600 mg tablet 600 mg PO Q6H PRN 03/28/20 02/02/21 Unknown History sertraline 25 mg tablet 1 tab PO DAILY 02/02/21 02/02/21 Unknown History Exam Height,Weight and Vital Signs: Height 5 ft 8 in Weight 76.657 kg Vital Signs Temp Pulse Resp BP Pulse Ox 02/12/21 06:17 97.8 F 67 16 113/70 96 Airway Mallampati Class: II TM Dist: >3cm Neck ROM: Full Loose/Missing/Broken Teeth: Yes (Some missing, front) Heart: RRR Lungs: CTAB Assessment and Plan Assessment Anesthesia Assessment: Anesthesia Plan Discussed Final Anesthetic Review Family History of Problems with Anesthesia: No History of Problems with Anesthesia: No NPO: Yes ASA Class: II Final Preanesthetic Review: No Changes in Pt Med Stat, Meds/Allgs Chart Revie fri, Consent Obtained/Reviewed and Anes Risks/Benef Reviewed Patient Risk: Low Procedure Risk: Low Anesthetic Plan Anesthetic Plan: GA Disposition: Standard PACU
[2021-02-12] VITALS (7 sets, daily range): BP systolic 112–133; BP diastolic 65–80; PULSE 56–67; RESP 16; TEMP 36.5–36.6; O2SAT 96–98; BMI 25.7
[2021-02-12] MEDS: Lactated Ringers 1,000 ML 100 ML IVCONT (06:22)
--- NOTE | 2021-02-12 09:25 | MHC.SHP ---
Pre-Procedural Eval Section A Date of Service: 02/12/21 The patient is an INPATIENT: No Changes since office visit: No Cold of Flu in the past 2 weeks, No New Medical Problems, No Changes in Medication and No Patient answered all questions The History & Physical has been completed within 30 days and I have reviewed it.: Yes Section B Chief Complaint: Carpal and cubital Tunnel Syndrome Allergies: Allergies Allergy/AdvReac Type Severity Reaction Status Date / Time No Known Allergies Allergy Unknown Verified 02/02/21 14:23 Plan I have reviewed the history and physical and performed a pertinent physical examination on my patient. No changes have occurred unless specified.
--- NOTE | 2021-02-12 09:26 | W.PM.OPN ---
Operative Note Operative Note Date of Service: 02/12/21 Narrative: Operative Note Narrative: Preop diagnosis: 1. Right Cubital tunnel syndrome 2. Right carpal tunnel syndrome Postop diagnosis: Same Procedure: 1. Right Cubital Tunnel Release and anterior ulnar nerve transposition 2. Right carpal tunnel release Surgeon: Claudia Johnson MD Anesthesia: General Findings: Thickening and fibrosis about the ulnar nerve at the cubital tunnel with subluxation of the nerve after cubital tunnel release. Implants: none Tourniquet time: 41 minutes EBL: 5.0 ml Specimen: none Drains: None Complications: None Disposition: Brought to the recovery room in stable condition Plan: Follow-up in 10-14 days for wound check, and suture removal Indications: The patient is 40 years old man with right cubital tunnel syndrome and carpal tunnel syndrome with dense numbness . The risks and benefits of operative treatment, including but not limited to risk of damage to blood vessels, nerves, tendons, infection, recurrence, persistent pain or numbness, incomplete resolution of preoperative symptoms, or need for further surgery were discussed with the patient and they wished to proceed with surgery. Procedure: Once consent was obtained patient was brought back to the operating suite and placed in the operating table in a supine position. Perioperative antibiotics and anesthesia was administered by the anesthesia team. The limb was prepped and draped in a standard surgical fashion, and a sterile tourniquet applied to the proximal aspect of the right upper extremity. The limb was elevated exsanguinated with Esmarch bandage and the tourniquet inflated to 250 mm of mercury for a total tourniquet time of 41 minutes. Once assured that we had a good block, a 1.5 cm longitudinal incision was made centered over the right carpal tunnel. The incision was made through the skin to the subcutaneous tissues using a #15 blade. Dissection was made down to the level of the transverse carpal ligament with care being taken to protect the palmar cutaneous nerve. Once the transverse carpal ligament was clearly visualized, a longitudinal incision was made in the transverse carpal ligament 1st using a #15 blade, then using tenotomy scissors under direct visualization. Care was taken to look for and protect the motor branch of the median nerve when seen in this area. Once satisfied with our carpal tunnel release the wound was irrigated with normal saline. A 6 cm gently curved but longitudinally oriented incision was made centered over the cubital tunnel of the right upper extremity. Incision was made through the skin to the subcutaneous tissues using a # 15 Blade. I then dissected down to the level of the medial epicondyle and the cubital tunnel using tenotomy scissors. Care was taken to protect the lateral antebrachial cutaneous nerve. The ulnar nerve was identified just posterior to the medial intermuscular septum. Small vessel loop was passed behind the ulnar nerve and used to apply gentle traction to facilitate our release. The ulnar nerve was released in a proximal to distal direction using tenotomy in iris scissors while directly visualizing and protecting the ulnar nerve. Thickening and fibrosis was appreciated about the ulnar nerve as it passed through the cubital tunnel. The ulnar nerve was assessed as I passed the elbow through full flexion and extension and was found to sublux anteriorly with elbow flexion. As the ulnar nerve appeared to subluxate over the medial epicondyle, the decision was made to proceed with an anterior ulnar nerve transposition. The subcutaneous tissue was carefully freed from the fascia anterior to the medial epicondyle creating an appropriate bed for the ulnar nerve transposition. The ulnar nerve was then freed and carefully transposed anterior to the medial epicondyle. Some of the subcutaneous tissue in the anterior flap of was carefully secured to the fascia about the medial epicondyle using some 4-0 Vicryl suture material. This created a sling to prevent posterior subluxation of the ulnar nerve. The ulnar nerve was evaluated in its transposition site and found to have good ability to glide and to be free from undo pressure from the anterior sling as the elbow was passed from flexion to extension and back. At this point the tourniquet was deflated and hemostasis obtained with a brief period of local pressure and bipolar electrocautery. The wound was copiously irrigated with normal saline. The subcutaneous layer was closed with 4-0 Vicryl suture, and the skin edges were reapproximated with 5-0 nylon suture. The wound was infiltrated with some 0.25% plain Marcaine for postop pain control and sterile dressings and a posterior splint was applied. The patient appears to have tolerated the procedure well and with no complications. All digits were well vascularized conclusion of the case.
== END 2021-02-12 10:47 | disposition home or self-care (01) ==
PROVIDERS: PCP Physician Assistant; Visit Provider Orthopaedic Surgery
PROC: (CPT 64721; principal; 2021-02-12 07:30)
DX: G56.01 Carpal tunnel syndrome, right upper limb (principal); G56.21 Lesion of ulnar nerve, right upper limb; F12.90 Cannabis use, unspecified, uncomplicated
CPT/HCPCS: 64721; 64718; J0690; J1100; J2250; J2405; J3010

== ENCOUNTER → 2021-02-21 14:41 | Outpatient (BNVA) | payer OTHER, SELFPAY | PROVIDERS: PCP Physician Assistant; Visit Provider Orthopaedic Surgery | DX: G56.21 Lesion of ulnar nerve, right upper limb (principal); G56.01 Carpal tunnel syndrome, right upper limb | CPT/HCPCS: 99212 ==

== ENCOUNTER → 2021-03-06 13:18 | Outpatient (BNVA) | payer OTHER, SELFPAY | PROVIDERS: PCP Physician Assistant; Visit Provider Orthopaedic Surgery | DX: G56.03 Carpal tunnel syndrome, bilateral upper limbs (principal); G56.23 Lesion of ulnar nerve, bilateral upper limbs | CPT/HCPCS: 99212 ==

== ENCOUNTER 2021-03-22 08:35 | Outpatient (REF) | payer OTHER, SELFPAY ==
--- NOTE | ~2021-03-22 | XR_ITS ---
EXAMINATION: KNEE X-RAY CLINICAL INFORMATION: Pain COMPARISON: Previous x-ray the left knee January 2017 TECHNIQUE: Standing AP view of both knees and lateral and sunrise view of the left knee FINDINGS: Left knee: Bone alignment is normal. No fracture or dislocation is seen. The joint spaces are normal. There is no joint effusion. Standing AP view of the right knee is unremarkable. XR/XR knee standing BI IMPRESSION: Unremarkable exam.
--- NOTE | ~2021-03-22 | XR_ITS ---
EXAMINATION: KNEE X-RAY CLINICAL INFORMATION: Pain COMPARISON: Previous x-ray the left knee January 2017 TECHNIQUE: Standing AP view of both knees and lateral and sunrise view of the left knee FINDINGS: Left knee: Bone alignment is normal. No fracture or dislocation is seen. The joint spaces are normal. There is no joint effusion. Standing AP view of the right knee is unremarkable. XR/XR knee LT 2V IMPRESSION: Unremarkable exam.
== END 2021-03-22 08:36 | disposition home or self-care (01) ==
LOC: HO.HOSX 08:35
PROVIDERS: Visit Provider Orthopaedic Surgery
DX: M23.92 Unspecified internal derangement of left knee (principal)
CPT/HCPCS: 73560; 73565; 99202

== ENCOUNTER 2021-03-29 19:20 | Outpatient (REF) | payer OTHER, SELFPAY ==
--- NOTE | ~2021-03-29 | MR_ITS ---
EXAMINATION: MR KNEE WITHOUT CONTRAST, LEFT CLINICAL INFORMATION: Left knee pain. COMPARISON: None TECHNIQUE: MRI of the knee without contrast was performed using routine sequences on a high-field scanner. FINDINGS: MENISCI: Medial Meniscus: Intact. Lateral Meniscus: Intact. LIGAMENTS: Cruciate: Intact. Collateral: Intact. EXTENSOR MECHANISM: Intact. ARTICULAR CARTILAGE/BONE: Patellofemoral Compartment: Minimal articular cartilage signal heterogeneity of the lateral patellar facet. The patella appears slightly subluxed and tilted laterally. Medial Compartment: Normal. Lateral Compartment: Foci of mild cartilage signal heterogeneity and degenerative marrow change at the peripheral weightbearing aspect of the femoral condyle and small marginal osteophytes. Given the location, this may be the sequela of a remote transient lateral patellar dislocation impaction injury. JOINT FLUID AND BURSAE: No significant joint effusion. MR/MR knee LT wo con IMPRESSION: No meniscal tear. Mild patellofemoral/lateral compartment osteoarthritis. No significant joint effusion.
== END 2021-03-29 19:21 | disposition home or self-care (01) ==
LOC: HO.MRI 19:20
PROVIDERS: Visit Provider Orthopaedic Surgery
DX: M23.92 Unspecified internal derangement of left knee (principal)
CPT/HCPCS: 73721

== ENCOUNTER → 2021-04-04 10:38 | Outpatient (BNVA) | payer OTHER, SELFPAY | PROVIDERS: PCP Physician Assistant; Visit Provider Orthopaedic Surgery | DX: G56.03 Carpal tunnel syndrome, bilateral upper limbs (principal); G56.23 Lesion of ulnar nerve, bilateral upper limbs | CPT/HCPCS: 99212 ==

== ENCOUNTER → 2021-06-21 09:37 | Outpatient (BNVA) | payer OTHER, SELFPAY | PROVIDERS: PCP Physician Assistant; Visit Provider Physician Assistant | DX: M17.12 Unilateral primary osteoarthritis, left knee (principal) | CPT/HCPCS: 99212 ==

== ENCOUNTER 2021-08-19 07:41 | Emergency (ER) | payer OTHER, SELFPAY ==
--- NOTE | ~2021-08-19 | XR_ITS ---
EXAMINATION: XR CHEST CLINICAL INFORMATION: Cough COMPARISON: 03/06/2020 TECHNIQUE: 2 views of the chest were obtained. FINDINGS: Lungs are well-inflated and clear. Trachea is midline in position. No interstitial disease, consolidation or mass. No pleural effusion or pneumothorax. Cardiac silhouette and pulmonary vessels are normal in size. The mediastinum and destin have normal contour. There appears to be chronic degenerative narrowing of some of the disc spaces in the upper thoracic spine. No suspicious bone lesions. XR/XR chest 2V IMPRESSION: No evidence of pneumonia. No acute cardiopulmonary abnormality.
[2021-08-19 07:44] VITALS: BP 108/71; PULSE 66; RESP 18; TEMP 36.8; O2SAT 98; BMI 30.4
--- NOTE | 2021-08-19 08:05 | ED_ITS ---
HPI - URI/Sore Throat General Chief Complaint: Upper Respiratory Symptoms Stated Complaint: Flu symptoms/R elbow pain Time Seen by Provider: 08/19/21 08:02 Source: patient Mode of arrival: ambulatory Limitations: no limitations History of Present Illness HPI Narrative: Flu like symtoms X 4 Days ,sore throat,cough MD elicited complaint: cough, sore throat, rhinorrhea and nasal congestion Onset (ago): day(s) (4) Consistency: constant Severity: moderate Description of mucous: clear Able to tolerate fluids by mouth: Yes Exacerbating factors: nothing Relieving factors: nothing Related Data Home Medications Medication Instructions Recorded Confirmed ibuprofen 600 mg tablet 600 mg PO Q6H PRN 03/28/20 04/04/21 Previous Rx's Medication Instructions Recorded ketoconazole 2 % topical cream 1 applic TOPICAL DAILY 30 Days #30 03/02/20 g acetaminophen 650 mg 650 mg PO Q12H 30 Days #60 tab 08/17/20 tablet,extended release meloxicam 15 mg tablet 15 mg PO DAILY 20 Days #20 tab 09/14/20 amoxicillin 500 mg capsule 500 mg PO TID 5 Days #15 cap 04/03/21 pantoprazole 20 mg tablet,delayed 20 mg PO DAILY 30 Days #30 tab 05/31/21 release sertraline 50 mg tablet 50 mg PO DAILY 30 Days #30 tab 05/31/21 erythromycin 5 mg/gram (0.5 %) eye 0.5 inch OPHTHALMIC (EYE) TID #1 g 06/27/21 ointment Allergies Allergy/AdvReac Type Severity Reaction Status Date / Time No Known Allergies Allergy Unknown Verified 08/19/21 07:44 Review of Systems Review of Systems: Yes all other systems are reviewed and are negative Eyes: Eyes: Reports no additional eye complaints Cardiovascular: Cardiovascular: Reports no additional cardiovascular complaints Respiratory: Respiratory: Reports cough Gastrointestinal: Gastrointestinal: Denies vomiting and Denies hematemesis Musculoskeletal: Musculoskeletal: Reports no additional musculoskeletal complaints Neurologic: Reports system reviewed and no additional complaints, except as documented PMFSH Past Medical History Medical History Anxiety and depression Asthma GI bleed PUD (peptic ulcer disease) Ulcer Surgical History History of esophagogastroduodenoscopy (EGD) History of testicular surgery Family History Family History Mother Diabetes Hypertension Breast cancer Cirrhosis of liver Brother Cirrhosis of liver Father Cancer Esophageal cancer Social History Social History Housing: Apartment Alcohol intake: never Patient Tobacco Use Status: Never used Tobacco e-Cigarette/Vaping Use: Never Used Second Hand Smoke Exposure: No Substance Use Type: Marijuana Advance Directives: No Advance Directives Information Provided: Yes service: No Current occupational status: unemployed 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 Physical Exam Vital Signs: Vital Signs: Last Vital Signs Temp 98.3 F 08/19/21 07:44 Pulse 66 08/19/21 07:44 Resp 18 08/19/21 07:44 BP 108/71 08/19/21 07:44 Pulse Ox 98 08/19/21 07:44 BMI result Body Mass Index 30.4 Const: General: cooperative and healthy appearing Nutritional Appearance: average body habitus Orientation/consciousness: patient oriented x3 Limitations: no limitations HEENT: Head: Yes normal to inspection Ears: hearing grossly normal bilaterally General nose exam: Normal external nose present Face and sinus: Yes normal facial exam Mouth: Normal oral and palatal mucosa present Teeth and gingiva: dentition normal Throat: Yes posterior oropharynx normal and Yes tonsils normal Eyes: General: appearance normal, both eyes and all related structures Visual [place]: normal visual [place] by confrontation Pupils: Equal, round and reactive pupils present and Pupils normal by confrontation EOM: EOMs intact bilaterally Direct Ophthalmoscopy: no photophobia Neck: Neck: Yes normal visual inspection, Yes full ROM and Yes no lymphadenopathy Thyroid: Thyroid normal Lymphatic: no lymphadenopathy noted Chest: Chest palpation & inspection: normal inspection of the chest Resp: Effort & Inspection: normal respiratory effort and able to speak in complete sentences Auscultation: clear to auscultation bilaterally Cardio: Jugular venous distension: no JVD Rate: regular rate Rhythm: re gular rhythm GI: Inspection: Yes normal to inspection Palpation (GI): Soft to palpation, not firm, nontender and no guarding Auscultation: normal bowel sounds : General: Yes no CVA tenderness Back/Spine/Pelvis: Back: no CVA tenderness Skin: General skin exam: no rashes or lesions noted and elasticity normal Lesions: no lesions Rashes: no rashes Neuro: General: patient oriented x3 Cranial nerves: Yes CN's II-XII intact bilaterally and Yes Equal, round and reactive pupils present MDM - URI/Sore Throat Lab Data Labs: Lab Results 08/19/21 08/19/21 08/19/21 Range/Units 07:53 07:53 07:53 COVID-19 (COURTNEY) Negative (Negative) COVID-19 Clin Com See Note Influenza Type A (CHASE) Negative (Negative) Influenza Type B (CHASE) Negative (Negative) Influenza A & B Note See Note S. pyogenes GrpA CHASE Negative (Negative) Imaging Data Chest x-ray: Radiologist's impression: COMPARISON: 03/06/2020 TECHNIQUE: 2 views of the chest were obtained. FINDINGS: Lungs are well-inflated and clear. Trachea is midline in position. No interstitial disease, consolidation or mass. No pleural effusion or pneumothorax.? Cardiac silhouette and pulmonary vessels are normal in size. The mediastinum and destin have normal contour. There appears to be chronic degenerative narrowing of some of the disc spaces in the upper thoracic spine. No suspicious bone lesions. XR/XR chest 2V IMPRESSION: No evidence of pneumonia. No acute cardiopulmonary abnormality. ? Dictated By: Lamont Ramachandran MD Signed By: Discharge Plan Discharge Clinical Impression: Upper respiratory infection Patient Disposition: Home, Self-Care Instructions: Upper Respiratory Infection (DC) Prescriptions: No Action meloxicam 15 mg tablet 15 mg PO DAILY 20 Days Qty: 20 0RF sertraline 50 mg tablet 50 mg PO DAILY 30 Days Qty: 30 2RF pantoprazole 20 mg tablet,delayed release (DR/EC) 20 mg PO DAILY 30 Days Qty: 30 3RF ketoconazole 2 % cream 1 applic topical DAILY 30 Days Qty: 30 0RF ibuprofen 600 mg tablet 600 mg PO Q6H PRN (Reason: pain) 0RF acetaminophen 650 mg tablet extended release 650 mg PO Q12H 30 Days Qty: 60 2RF erythromycin 5 mg/gram (0.5 %) ointment 0.5 inch ophthalmic (eye) TID Qty: 1 0RF amoxicillin 500 mg capsule 500 mg PO TID 5 Days Qty: 15 0RF Referrals: Felix Junior PA-C [Primary Care Provider] - 2 days Interventions: ED Discharge Assessment Last Done: 08/19/21 08:57 Discharge Date/Time: 08/19/21 08:58
[2021-08-19 08:11] LABS: Strep A Nucleic Acid Negative (Negative)
[2021-08-19 08:16] LABS: COVID-19 Test Negative (Negative); IDNOW Serial# 16C4AD1C; Influenza A Negative (Negative); Influenza B2 Negative (Negative)
== END 2021-08-19 08:58 | disposition home or self-care (01) ==
PROVIDERS: Emergency Provider Emergency Medicine; PCP Physician Assistant
DX: J06.9 Acute upper respiratory infection, unspecified (principal); R05.9 Cough, unspecified; J02.8 Acute pharyngitis due to other specified organisms; Z20.822 Contact with and (suspected) exposure to COVID-19; Z79.899 Other long term (current) drug therapy
CPT/HCPCS: 71046; 87502; 87635; 87651; 99283

== ENCOUNTER → 2021-09-05 10:23 | Outpatient (BNVA) | payer OTHER, SELFPAY | PROVIDERS: PCP Physician Assistant; Visit Provider Orthopaedic Surgery | DX: M77.8 Other enthesopathies, not elsewhere classified (principal); R20.0 Anesthesia of skin; R20.2 Paresthesia of skin | CPT/HCPCS: 99212 ==

== ENCOUNTER 2021-09-06 08:44 | Outpatient (REF) | payer OTHER, SELFPAY ==
--- NOTE | ~2021-09-06 | XR_ITS ---
EXAMINATION: XR CERVICAL SPINE CLINICAL INFORMATION: Skin anesthesia. COMPARISON: None TECHNIQUE: 5 views of the cervical spine were obtained. FINDINGS: There is mild straightening of cervical lordosis. The vertebral heights and alignment is normal. The disc heights appear preserved. The neural foramina are bilaterally patent. No visible acute fracture, dislocation or subluxation seen. XR/XR cervical spine 4V IMPRESSION: Markable cervical spine exam.
[2021-09-06 09:25] LABS: Hemoglobin 14.5 g/dl (14.0-18.0); Mean Corpuscular Hemoglobin 32.1 pg (27.0-33.0); Mean Corpuscular Volume 97.3 fL (80.0-98.0); Mean Platelet Volume 11.2 fL (9.4-12.4); Platelet Count 209 X10*3/uL (160-400); Red Blood Count 4.52 X10*6/uL (4.60-5.80); Red Cell Distribution Width 12.6 % (11.0-16.0); White Blood Count 7.7 X10*3/uL (4.8-10.8)
[2021-09-06 09:53] LABS: Alanine Aminotransferase 57 U/L (0-40); Albumin Level 4.1 g/dL (3.5-5.0); Alkaline Phosphatase 52 U/L (39-117); Anion Gap 10 (12-20); Aspartate Amino Transferase 39 U/L (5-37); Bilirubin Total 0.6 mg/dL (0.0-1.0); Blood Urea Nitrogen 18 mg/dL (9-16); Calcium 9.4 mg/dL (8.4-10.2); Carbon Dioxide 26 mmol/L (22-29); Chloride 107 mmol/L (96-108); Cholesterol 218 mg/dL; Estimated Glomerular Filt Rate > 60; Glucose Fasting 86 mg/dL (60-99); HDL Cholesterol 38 mg/dL; LDL Cholesterol Calculated 145 mg/dl; Potassium 4.6 mmol/L (3.3-5.1); Sodium 138 mmol/L (135-145); Total Protein 7.2 g/dL (6.5-8.0); Triglycerides 179 mg/dL
[2021-09-06 10:00] LABS: Estimated Average Glucose 97 mg/dL
[2021-09-06 10:18] LABS: TSH reflex Free T4 0.38 uIU/mL (0.32-4.0)
== END 2021-09-06 08:45 | disposition home or self-care (01) ==
LOC: HO.XRAY 08:44
PROVIDERS: PCP Physician Assistant; Visit Provider Physician Assistant
DX: Z13.29 Encounter for screening for other suspected endocrine disorder (principal); Z13.220 Encounter for screening for lipoid disorders; R20.0 Anesthesia of skin
CPT/HCPCS: 36415; 72050; 80053; 80061; 83036; 84443; 85027

== ENCOUNTER 2021-09-25 18:05 | Outpatient (REF) | payer OTHER, SELFPAY ==
--- NOTE | ~2021-09-25 | MR_ITS ---
EXAMINATION: MR CERVICAL SPINE WITHOUT CONTRAST CLINICAL INFORMATION: 40-year-old with cervical radiculopathy. COMPARISON: None TECHNIQUE: MRI of the cervical spine was obtained using routine sequences without contrast. FINDINGS: ALIGNMENT: Normal. No spondylolisthesis or retrolisthesis. CRANIOCERVICAL JUNCTION/C1-C2 ARTICULATIONS: Intact and aligned. VISUALIZED INTRACRANIAL STRUCTURES: Within normal limits. VERTEBRAL BODIES: Normal height. DISC SPACES AND ENDPLATES: Moderate intervertebral disc space height loss and mild spondylosis at C6-C7. Hhwhtuh-na-hkyp disc space height loss at C4-C5 and C5-C6. Minor spondylosis at C5-C6. BONE MARROW: Type I degenerative marrow signal changes along the endplates at C6-C7 asymmetric to the left. Otherwise, bone marrow signal intensity appears within normal limits. C2-C3: Shallow broad-based central to left paramedian disc protrusion with minimal indentation of the ventral thecal sac without cord impingement. Minor facet arthropathy noted bilaterally without significant neural foraminal stenosis. C3-C4: Very small central disc protrusion with minimal indentation of the ventral thecal sac without cord impingement or canal stenosis. Minor facet arthrosis bilaterally and minor uncinate process spurring with mild left-sided neural foraminal stenosis. C4-C5: Shallow broad-based central disc protrusion with mild flattening of the central dural sac without cord impingement or canal stenosis. No significant DJD or neural foraminal stenosis. C5-C6: Shallow broad-based central disc protrusion slightly asymmetric to the right with vfzv-tl-tkthoufc flattening of the ventral dural sac without cord impingement or canal stenosis. Mild ligamentum flavum thickening noted with mild facet hypertrophic change without significant neural foraminal stenosis. C6-C7: Broad-based disc protrusion asymmetric to the left with endplate spurring, with flattening of the ventral dural sac without cord impingement. Borderline central canal stenosis is noted. There is uncovertebral spurring noted bilaterally with hzvr-hb-dbpaizxd facet hypertrophic change left more than right. Pjcrzhan-fr-lfdpqo left-sided and moderate right-sided neural foraminal stenosis noted. C7-T1: No disc herniation or canal stenosis. Mild bilateral facet arthrosis noted without significant neural foraminal stenosis. T1-T2: No disc herniation or canal stenosis. No significant facet arthrosis, canal or neural foraminal stenosis. SPINAL CORD: The cervical and visualized upper thoracic spinal cord is normal in morphology, caliber and signal intensity throughout, without focal lesion, edema or syrinx. EXTRACRANIAL SOFT TISSUES: The visualized soft tissue structures are grossly unremarkable. MR/MR cervical spine wo con IMPRESSION: 1. Normal spinal alignment, with multilevel disc protrusions, discogenic degenerative changes and spondylosis, as described above with borderline spinal canal stenosis at C6-C7 without cord impingement. 2. Multilevel DJD as described above, with ngoqvmvv-zv-qaraco left and moderate right-sided bony neural foraminal stenosis at C6-C7 and mild left-sided neural foraminal stenosis at C3-C4.
== END 2021-09-25 18:06 | disposition home or self-care (01) ==
LOC: HO.MRI 18:05
PROVIDERS: Visit Provider Physician Assistant
DX: M54.12 Radiculopathy, cervical region (principal)
CPT/HCPCS: 72141

== ENCOUNTER 2021-10-02 09:00 | Outpatient (RCR) | payer OTHER, SELFPAY | END 2021-11-08 16:38 | disposition home or self-care (01) | LOC: HO.OT 09:00 | PROVIDERS: PCP Physician Assistant; Visit Provider Orthopaedic Surgery | DX: M77.8 Other enthesopathies, not elsewhere classified (principal); R20.0 Anesthesia of skin; R20.2 Paresthesia of skin | CPT/HCPCS: 97035; 97110; 97140; 97167; 97530 ==

== ENCOUNTER 2021-11-02 09:00 | Outpatient (RCR) | payer OTHER, SELFPAY ==
[2021-09-26 10:12] VITALS: BP 117/66; PULSE 62; O2SAT 97
--- NOTE | 2021-09-26 12:31 | MHC.PT.EP ---
[facility] [place] Office [place] [facility] [place] [facility] [address] Dmitry Silver [address] [phone] F: [phone] F: [phone] F: [phone] F: [phone] Physical Therapy Plan of Care Date of Evaluation: Date of Surgery: 04/28/21 Diagnosis: CERVICAL radiculopathy Assessment: 40 YO MALE REF TO PT FOR CERVICAL PAIN W Lt UE RADICULOPATHY, x 1 YEAR. HE HAD AN MRI 09/25/21 AND WE ARE AWAITING RESULTS. 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 OBJECTIVE FINDINGS INCLUDE: DECR CERV AROM, DECR POSTURAL AWARENESS W UPPER CERV HYPERLORD, ANA SH TIGHTNESS AND PAINFUL RESTRICTED ROM, DECR UEs /POST RC/ SCAP/ MID BACK MM STRENGTH, AND (+) PAIN AND TISSUE TENSION. HE HAS INTERMITTENT RADIC SXS INTO Lt UE, H/O CTS RELEASE Rt AND CTS Lt. FUNCTIONALLY, Pt HAS DIFFIC SLEEPING, SITTING >15 MIN, STANDING > 10 MIN, ADLs REQ CARRYING OR INCR EFFORT. Pt WOULD BENEFIT FROM PT TO ADDRESS THE ABOVE FINDINGS, PAIN -SOFT TISSUE MGMT, AND DEV A PROGR HEP/ SELF-SX MGMT PROGRAM. Frequency and Duration: The patient will be seen 2x WK x 5 WKS Short Term Goals: *Pt INDEP W SELF-CORRECT POSTURE / BODY MECHANICS TO NEUTRAL IN VARIED POSTURES AND ADL SIMUL IN 1 wk *Pt'S CERV PAIN DECR TO 4-5/10 AND LEFT UE RADIC SXS DECR BY 50% W REG ADLs IN 2 WKS *Pt DEMO INCR AROM IN CERV AND ANA SH IN 2 WKS [employer] Sales Goals: Pt INDEP W HEP PROGRESSION AND SELF-SX MGMT STRATEGIES IN 5 WKS Pt RESUME REG ADLs EVIDENT W IMPROVED NPDI SCORE BY 8-10 POINTS (AT EVAL 41/50 ) IN 5 WKS Pt INCR UE/ POST RC/ SCAP STRENGTH BY 1 GRADE IN 5 WKS Treatment Plan: Modalities to reduce pain, spasms and effusion. Manual therapy to restore motion and function. Therapeutic exercise to improve strength and flexibility. Neuromuscular re-education for posture and balance. Therapeutic activities to return to functional activities of daily living. Electronically signed by: Tamara Florez PT Please sign and return to therapist. Thank you for your referral.
--- NOTE | 2021-11-02 09:50 | MHC.PT.DC ---
[facility] [place] Office [place] Office [place] [facility] [address] Dmitry Silver [address] [phone] F: [phone] F: [phone] F: [phone] F: [phone] Physical Therapy Discharge Report Diagnosis: CERVICAL radiculopathy Date of Surgery: 04/28/21 Date of Evaluation: 09/26/21 Date of Discharge: 11/02/21 Treatments to Date: 6 Cancellations to Date: 3 No Shows to Date: 2 Discharge Status: Improved Function Recommend MD Follow-up Discharge Summary: REGINO PRESENTED, NOTING SUBJECTIVE SXS HAVE NOT CONSISTENTLY REDUCED- HE HAS PERSISTENT UEs RADIC SXS- HIS NPDI SCORE HAS NOT CHANGED, HIS CERV AROM IS RESTRICTED- HE DID NOT MEET PT GOALS AFTER 6 PT APPTS - Pt'S POSTURAL/ BODY MECH CARRYOVER IS FAIR. HE HAS A NEURO CONSULT THIS AM, Pt IS D/C AT THIS TIME FROM PT Electronically signed by: Tamara Florez,PT Please sign and return to therapist. Thank you for your referral.
== END 2021-11-02 09:51 | disposition home or self-care (01) ==
LOC: HO.PT 09:00
PROVIDERS: Visit Provider Physician Assistant
DX: M54.12 Radiculopathy, cervical region (principal)
CPT/HCPCS: 97012; 97014; 97110; 97112; 97140; 97162

== ENCOUNTER 2021-11-18 08:18 | Emergency (ER) | payer OTHER, SELFPAY ==
[2021-11-18 08:39] VITALS: BP 117/74; PULSE 65; RESP 16; TEMP 36.8; O2SAT 97
== END 2021-11-18 10:52 | disposition left against medical advice (07) ==
PROVIDERS: Emergency Provider Emergency Medicine; PCP Physician Assistant
DX: M54.2 Cervicalgia (principal)

== ENCOUNTER 2021-12-06 08:19 | Outpatient (REF) | payer OTHER, SELFPAY ==
--- NOTE | 2021-12-06 08:22 | EMG_ITS ---
Bilateral median and ulnar motor and sensory studies were performed, bilateral radial sensory studies were performed, and paraspinal muscles were tested with a needle. IMPRESSION: 1. Mild left ulnar neuropathy across cubital tunnel. 2. Mild right median neuropathy across carpal tunnel. 3. No evidence of radiculopathy. MD LEONARDO Hirsch/CHARLI / [id number]
== END 2021-12-06 08:20 | disposition home or self-care (01) ==
LOC: HO.NEURO 08:19
PROVIDERS: Visit Provider Orthopaedic Surgery
DX: R20.0 Anesthesia of skin (principal); R20.2 Paresthesia of skin
CPT/HCPCS: 95886; 95911

== ENCOUNTER → 2021-12-13 08:55 | Outpatient (BNVA) | payer OTHER, SELFPAY | PROVIDERS: PCP Physician Assistant; Visit Provider Physician Assistant | DX: G56.22 Lesion of ulnar nerve, left upper limb (principal); G56.01 Carpal tunnel syndrome, right upper limb; M77.8 Other enthesopathies, not elsewhere classified | CPT/HCPCS: 99212 ==

== ENCOUNTER 2021-12-20 07:47 | Emergency (ER) | payer OTHER, SELFPAY ==
[2021-12-20 07:50] VITALS: BP 125/83; PULSE 65; RESP 16; TEMP 36.6; O2SAT 98; BMI 30.4
[2021-12-20 07:59] LABS: Glucose, Whole Blood 106 mg/dL (60-115)
--- NOTE | 2021-12-20 08:10 | ED.GENADULT ---
HPI - General Adult General Chief complaint: General Medical Stated complaint: blurred vission dizzy neck and arms pain Time Seen by Provider: 12/20/21 08:10 Source: patient Mode of arrival: ambulatory Limitations: no limitations History of Present Illness HPI narrative: Patient is a 41 year old male presenting to the emergency department today with neck pain that radiates into his arm. Patient states that he has had this issue for years and does have a neck surgery scheduled later this month but today the pain was much worse. Patient denies any dizziness, lightheadedness, abdominal pain, nausea, vomiting, fever, chills, blurry vision, double vision, loss of vision, chest pain, difficulty breathing, shortness of breath, back pain, night sweats, pain with urination, increased urinary frequency, increased urinary urgency, blood in his urine or stool, syncope or a near syncopal episode, recent trauma or falls, bowel incontinence, bladder incontinence, bowel retention, bladder retention, or any other complaints at this time. Onset (ago): year(s) Location: neck Radiation: extremity Severity: mild Severity scale (1-10): 2 Quality: sharp Pain Consistency: intermittent Relieving factors: none Exacerbating factors: movement Associated symptoms: denies other symptoms Treatments prior to arrival: none Related Data Home Medications Medication Instructions Recorded Confirmed ibuprofen 600 mg tablet 600 mg PO Q6H PRN pain 03/28/20 09/04/21 Previous Rx's Medication Instructions Recorded ketoconazole 2 % topical cream 1 applic topical DAILY 30 days #30 03/02/20 grams acetaminophen 650 mg 650 mg PO Q12H 30 days #60 tabs 08/17/20 tablet,extended release erythromycin 5 mg/gram (0.5 %) eye 0.5 inch ophthalmic (eye) TID #1 g 06/27/21 ointment meloxicam 15 mg tablet 15 mg PO DAILY 20 days #20 tabs 09/04/21 pantoprazole 40 mg tablet,delayed 40 mg PO DAILY 90 days #90 tabs 09/04/21 release sertraline 100 mg tablet 100 mg PO DAILY 90 days #90 tabs 09/04/21 gabapentin 600 mg tablet 600 mg PO BID 15 days #30 tabs 10/30/21 tizanidine 4 mg tablet 4 mg PO Q8H PRN muscle spasticity 11/19/21 10 days #30 tabs cyclobenzaprine 5 mg tablet 5 mg PO TID PRN neck pain 7 days 12/20/21 #21 tabs Allergies Allergy/AdvReac Type Severity Reaction Status Date / Time No Known Allergies Allergy Unknown Verified 12/13/21 09:00 Review of Systems Constitutional: Constitutional: Reports no additional constitutional complaints, Denies chills, Denies fever(s) and Denies night sweats Eyes: Eyes: Reports no additional eye complaints, Denies blurry vision, Denies change in vision, Denies diplopia, Denies eye discharge, Denies loss of vision and Denies eye pain ENT: Denies dizziness and Reports neck pain Cardiovascular: Cardiovascular: Reports no additional cardiovascular complaints, Denies chest pain, Denies lightheadedness, Denies Loss of Consciousness and Denies dyspnea Respiratory: Respiratory: Reports no additional respiratory complaints and Denies dyspnea Gastrointestinal: Gastrointestinal: Reports no additional gastrointestinal complaints, Denies abdominal pain, Denies melena, Denies hematochezia, Denies change in bowel habits and Denies change in stool character Genitourinary: Genitourinary: Reports no additional male genitourinary complaints, Denies hematuria, Denies oliguria, Denies difficulty urinating, Denies dysuria, Denies urinary frequency, Denies urinary hesitancy, Denies urinary incontinence and Denies urinary urgency Musculoskeletal: Musculoskeletal: Reports no additional musculoskeletal complaints, Reports neck pain, Denies numbness and Denies tingling Neurologic: Denies dizziness, Denies loss of vision, Denies numbness and Denies tingling Psychiatric: Psychiatric: Reports no additional psychiatric complaints Endocrine: Endocrine: Reports no additional endocrine complaints Hematologic/Lymphatic: Hematologic/Lymphatic: Reports no additional hematologic/lymphatic complaints Allergic/Immunologic: Allergic/Immunologic: Reports no additional allergic/immunologic complaints [facility] Past Medical History Attestation statement: The following information was validated with the patient. Source: old records reviewed Medical History Anxiety and depression Asthma GI bleed PUD (peptic ulcer disease) Ulcer Surgical History History of carpal tunnel surgery of right wrist History of esophagogastroduodenoscopy (EGD) History of testicular surgery Family History Family History Mother Diabetes Hypertension Breast cancer Cirrhosis of liver Brother Cirrhosis of liver Father Cancer Esophageal cancer Social History Social History Housing: Apartment Alcohol intake: never Patient Tobacco Use Status: Never used Tobacco e-Cigarette/Vaping Use: Never Used Second Hand Smoke Exposure: No Substance Use Type: Marijuana Advance Directives: No Advance Directives Information Provided: No service: No Current occupational status: unemployed 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 Cognitive needs: No Hearing needs: No Vision needs: No Physical Exam ED Vital Signs: Vital Signs - 24 hr 12/20/21 07:50 Temperature 98 F Pulse Rate 65 Respiratory Rate 16 Blood Pressure 125/83 Pulse Oximetry 98 Oxygen Delivery Method Room Air BMI result Body Mass Index 30.4 Const General: cooperative, no acute distress, alert and awake Nutritional Appearance: well nourished Orientation/consciousness: patient oriented x3 Limitations: no limitations HENMT Head: Yes normal to inspection and Yes atraumatic Ears: hearing grossly normal bilaterally and external ears normal General nose exam: Normal external nose present, no nasal discharge noted and no epistaxis Face and sinus: Yes normal facial exam, No abrasion and No laceration Mouth: Normal oral and palatal mucosa present, no drooling and no muffled voice Eyes General: appearance normal, both eyes and all related structures Periorbital: periorbital findings normal Eyelids: Yes eyelids normal Conjunctivae: conjunctivae normal Pupils: Equal, round and reactive pupils present EOM: EOMs intact bilaterally Neck Neck: Yes normal visual inspection, Yes full ROM and Yes no lymphadenopathy Chest Chest palpation & inspection: normal inspection of the chest Resp Effort & Inspection: normal respiratory effort and able to speak in complete sentences Auscultation: clear to auscultation bilaterally Cardio Rate: regular rate Rhythm: regular rhythm GI Inspection: Yes normal to inspection General: Yes no CVA tenderness Back/Spine/Pelvis Back: no CVA tenderness Cervical Spine: normal cervical lordosis and cervical ROM normal Thoracic/Lumbar Spine: thoracic and lumbar spine normal to inspection, Thoracic/lumbar spine scar(s) and thoraco-lumbar ROM normal Pelvis: no pain with anterior-posterior compression Neuro General: patient oriented x3 and moves all extremities Cranial nerves: Yes Equal, round and reactive pupils present Cognition (Neuro): normal cognition Motor exam (neuro): 5/5 motor strength present throughout Sensory Exam: Normal double simultaneous stimulation for sensation Coordination: ciamfg-gv-muws test normal Extrem General: Yes normal to inspection, Yes full ROM and Yes capillary refill normal Psych Appearance: grossly normal Mental Status: mental status grossly normal Affect: normal affect Attitude: cooperative Thought process: Normal thought process present Thought content: Normal thought content present Insight: Good insight present (Psych) Medical Decision Making MDM Narrative Medical decision making narrative: Patient is a 41 year old male presenting to the emergency department today with an acute flare of his chronic cervical radiculopathy. Patient's physical exam was unremarkable. I explained my physical exam findings to the patient. I answered all questions asked by the patient. When asked about the vision changes, urination, and weight loss issues he mentioned to the triage nurse, the patient stated that isn't what I'm here for, I just want medication for my neck pain . I explained to the patient that those symptoms could be related to a more pressing / concerning diagnosis and that we should work him up but he stated that wasn't what he was here for and he just wanted help with the neck pain. Patient received IM Toradol and PO Flexeril which he stated helped his symptoms significantly. I stressed the importance of the patient taking his medication as prescribed. I stressed the importance of the patient following up with his primary care provider. I stressed the importance of the patient returning to the emergency department immediately if his symptoms were to worsen or if he were to develop any dizziness, shortness of breath, difficulty breathing, chest pain, blurry vision, loss of vision, nausea, vomiting, abdominal pain, fever, chills, back pain, or any other complaints. Patient [and the patient's] verbalized agreement and understanding with this treatment plan and discharge. Differential Diagnosis Differential Diagnosis: neck pain Medical Records Medical records reviewed: Yes I reviewed the patient's medical records. Lab Data Lab results reviewed: Yes I reviewed the patient's lab results. Labs: Lab Results 12/20/21 Range/Units 07:52 POC Glucose 106 (60-115) mg/dL Discharge Plan Discharge Clinical Impression: Cervical radiculopathy Patient Disposition: Home, Self-Care Instructions: Cervical Radiculopathy (ED) Additional Instructions: Proceed with your cervical surgery, as scheduled. Follow up with your primary care provider and your internal controls specialist. Return to the emergency department immediately if your symptoms worsen or if you develop any dizziness, shortness of breath, difficulty breathing, chest pain, blurry vision, loss of vision, nausea, vomiting, abdominal pain, fever, chills, back pain, or any other complaints. Prescriptions: New cyclobenzaprine 5 mg tablet 5 mg PO TID PRN (Reason: neck pain) 7 Days Qty: 21 0RF No Action gabapentin 600 mg tablet 600 mg PO BID 15 Days Qty: 30 0RF tizanidine 4 mg tablet 4 mg PO Q8H PRN (Reason: muscle spasticity) 10 Days Qty: 30 0RF ketoconazole 2 % cream 1 applic topical DAILY 30 Days Qty: 30 0RF ibuprofen 600 mg tablet 600 mg PO Q6H PRN (Reason: pain) acetaminophen 650 mg tablet extended release 650 mg PO Q12H 30 Days Qty: 60 2RF erythromycin 5 mg/gram (0.5 %) ointment 0.5 inch ophthalmic (eye) TID Qty: 1 0RF pantoprazole 40 mg tablet,delayed release (DR/EC) 40 mg PO DAILY 90 Days Qty: 90 1RF sertraline 100 mg tablet 100 mg PO DAILY 90 Days Qty: 90 1RF meloxicam 15 mg tablet 15 mg PO DAILY 20 Days Qty: 20 0RF Referrals: Felix Junior PA-C [Primary Care Provider] - Stand Alone Forms: Work/School Release Interventions: ED Discharge Assessment Last Done: 12/20/21 08:56 Print Language: [place] Islander
[2021-12-20] MEDS: Cyclobenzaprine HCl 5 MG TABLET PO (08:46)
[2021-12-20] MEDS: Ketorolac Tromethamine 15 MG/ML VIAL IM (08:46)
== END 2021-12-20 08:58 | disposition home or self-care (01) ==
PROVIDERS: Emergency Provider Emergency Medicine Emergency Medical Services; PCP Physician Assistant
DX: M54.12 Radiculopathy, cervical region (principal); R42 Dizziness and giddiness; H53.8 Other visual disturbances; Z79.899 Other long term (current) drug therapy
CPT/HCPCS: 82947; 96372; 99283; 99284; J1885

== ENCOUNTER → 2021-12-25 09:56 | Outpatient (BNVA) | payer OTHER, SELFPAY | PROVIDERS: PCP Physician Assistant; Visit Provider Orthopaedic Surgery | DX: M77.8 Other enthesopathies, not elsewhere classified (principal); R20.0 Anesthesia of skin; R20.2 Paresthesia of skin; G56.22 Lesion of ulnar nerve, left upper limb | CPT/HCPCS: 99212 ==

== ENCOUNTER 2022-01-22 09:53 | Emergency (ER) | payer OTHER, SELFPAY ==
[2022-01-22 09:56] VITALS: BP 127/77; PULSE 65; RESP 16; TEMP 36.7; O2SAT 98; BMI 30.4
== END 2022-01-22 12:02 | disposition left against medical advice (07) ==
PROVIDERS: Emergency Provider Emergency Medicine; PCP Physician Assistant
DX: M54.50 Low back pain, unspecified (principal)
CPT/HCPCS: 99281

== ENCOUNTER → 2022-02-06 13:05 | Outpatient (BNVA) | payer OTHER, SELFPAY | PROVIDERS: PCP Physician Assistant; Visit Provider Orthopaedic Surgery | DX: G56.03 Carpal tunnel syndrome, bilateral upper limbs (principal); G56.21 Lesion of ulnar nerve, right upper limb | CPT/HCPCS: 99212 ==

== ENCOUNTER 2022-09-04 10:54 | Outpatient (REF) | payer OTHER, SELFPAY | END 2022-09-04 10:55 | disposition home or self-care (01) | LOC: HO.LAB 10:54 | PROVIDERS: Visit Provider Nurse Practitioner Family | DX: Z13.89 Encounter for screening for other disorder (principal) ==

== ENCOUNTER 2022-11-18 14:05 | Outpatient (AMB) | payer OTHER, SELFPAY ==
--- NOTE | 2022-11-18 15:14 | AM.OFFWIN_ITS ---
Intake Vital Signs 11/18/22 15:16 Height 5 ft 8 in BP 100/60 Blood Pressure Location Lt brachial Position Sitting Pulse 68 Pulse Source Pulse Oximeter Temp 96.8 F Temp Source Temporal Artery Scan Pulse Oximetry (%) 98 Oxygen Delivery Method Room Air Intake Visit Reasons: EST/trouble swallowing/sinus pressure Intake Note: Pt is here c/o having trouble swallowing. Pt also states he feels alot of sinus pressure and nose congestion. Patient Tobacco Use Status: Never used Tobacco Allergies baclofen Adverse Reaction (Intermediate, Verified 11/18/22 15:57) Ineffective tizanidine Adverse Reaction (Mild, Verified 11/18/22 15:57) Ineffective Medication List - Last Reconciled 11/18/22 by Bari Mohan MD acetaminophen ER 650 mg PO Q12H 30 days esomeprazole magnesium 20 mg PO DAILY 30 days hydroxyzine HCl 10 mg PO BID PRN 30 days ibuprofen 600 mg PO Q6H PRN loperamide mg PO ondansetron 4 mg PO Q8H PRN tramadol 100 mg (2 x 50 mg) PO BID PRN 30 days venlafaxine ER 75 mg PO DAILY 90 days Do you need a note to return to daycare/school/sports/work: Yes HPI EST/trouble swallowing/sinus pressure HPI Details Patient presents for a sick visit. Reporting symptoms of sinus congestion, sore throat and difficulty swallowing. Low-grade fever. No family member is sick. No recent travel. Patient reports symptoms of malaise and fatigue. [facility] Medical History Anxiety and depression Asthma GI bleed PUD (peptic ulcer disease) Ulcer Surgical History History of carpal tunnel surgery of right wrist History of esophagogastroduodenoscopy (EGD) History of testicular surgery Family History Mother Diabetes Hypertension Breast cancer Cirrhosis of liver Brother Cirrhosis of liver Father Cancer Esophageal cancer Social History Housing: Apartment Alcohol intake: never Patient Tobacco Use Status: Never used Tobacco e-Cigarette/Vaping Use: Never Used Second Hand Smoke Exposure: No Substance Use Type: Marijuana service: No Current occupational status: unemployed 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 Cognitive needs: No Hearing needs: No Vision needs: No Physical Exam Vital Signs: Last Vital Signs Temp 96.8 F 11/18/22 15:16 Pulse 68 11/18/22 15:16 BP 100/60 11/18/22 15:16 Pulse Ox 98 11/18/22 15:16 Oxygen Delivery Method Room Air 11/18/22 15:16 Const General: cooperative and healthy appearing Nutritional Appearance: well nourished Orientation/consciousness: patient oriented x3 Limitations: no limitations HEENT Head: Yes normal to inspection Eyes General: appearance normal, both eyes and all related structures Neck Neck: Yes normal visual inspection Chest Chest palpation & inspection: normal palpation of entire chest wall Resp Effort & Inspection: normal respiratory effort Neuro General: patient oriented x3 Results AMB Rapid Strep AMB Rapid Strep Negative Last Edit by Angela Harris CMA on 11/18/22 15:28 Results Reviewed Results Reviewed: Laboratory Last Values Strep Scn Rapid [facility] Negative 11/18/22 15:27 Assessment & Plan Assessment & Plan (1) URI (upper respiratory infection): Code(s): J06.9 - Acute upper respiratory infection, unspecified Plan: Antibiotics ordered. Increase fluid intake. Tylenol for aches and pains. If symptoms worsen, follow-up here for a recheck. Orders: Orders AMB Rapid Strep Screen Today Z13.9 - Encounter for screening, unspecified Coding Level of Care Code Est Pt Level 3 (15349) Diagnoses URI (upper respiratory infection) J06.9
[2022-11-18 15:16] VITALS: BP 100/60; PULSE 68; TEMP 36; O2SAT 98
== END 2022-11-18 16:52 | disposition home or self-care (01) ==
PROVIDERS: PCP Physician Assistant; Visit Provider Internal Medicine
DX: J06.9 Acute upper respiratory infection, unspecified (principal)
CPT/HCPCS: 87880; 99213

== ENCOUNTER 2023-02-18 15:09 | Outpatient (AMB) | payer OTHER, SELFPAY ==
[2023-02-18 15:19] VITALS: BP 116/78; PULSE 85; O2SAT 98; BMI 28.1
--- NOTE | 2023-02-18 15:19 | A.OFFPC_ITS ---
Vital Signs 02/18/23 15:19 Height 5 ft 8 in Weight 184 lb 8 oz BMI 28.1 BP 116/78 Blood Pressure Location Lt brachial Position Sitting Pulse 85 Pulse Source Pulse Oximeter Pulse Oximetry (%) 98 Oxygen Delivery Method Room Air Intake Visit Reasons: Annual Exam Paediatric Surgeon Required: No Accompanied by: Self / Same As Patient Allergies baclofen Adverse Reaction (Intermediate, Verified 02/18/23 15:29) Ineffective tizanidine Adverse Reaction (Mild, Verified 02/18/23 15:29) Ineffective Medication List - Last Reconciled 02/18/23 by Felix Junior PA-C acetaminophen ER 650 mg PO Q12H 30 days esomeprazole magnesium 20 mg PO DAILY 90 days hydroxyzine HCl 10 mg PO BID PRN 30 days ibuprofen 600 mg PO Q6H PRN tramadol 100 mg (2 x 50 mg) PO BID PRN 30 days venlafaxine ER 75 mg PO DAILY 90 days Tobacco use date assessed: 09/04/22 Dental Screening Dental Screen Date: 02/18/23 Did you have a dental visit in the last 12 months?: Yes Did you have a dental problem in the last 6 months where you did not have access to dental care?: No Was dental information given to patient?: Patient has dentist HPI Annual Exam HPI Details Patient is a 42-year-old male with a past medical history significant for major depressive disorder, peptic ulcer disease, anxiety disorder and bilateral carpal tunnel syndrome, cervical spine stenosis. Concerns--> continued neck pain bilateral hand pain. Has not been able to work due to his bilateral hand pain has underwent right carpal tunnel release though was ineffective. Also has had previous cervical spine surgery and has followed up with his surgeon and reports no issues on x-ray. He feels somewhat discouraged and has stopped getting workup on his upper extremities at this time.. Has tried gabapentin though felt it was not effective on reducing his pain. Has been started on tramadol 100 mg b.i.d. PRN with only minimal relief his pain. .. Bilateral carpal tunnel:? Patient is status post right carpal tunnel and cubital tunnel release, he feels that his status has worsened since surgery.? He continues to have weakness and and sharp pains in his forearm and right hand.? He is due for repeat EMG as he is status post cervical disc surgery. .. GERD / PUD: Has noted weight loss since last office visit. He reports he has decreased appetite as he often feels nauseous. Attributes this to his gastric reflux and peptic ulcer disease. Continues with the use PPI therapy who with decent affect on reducing his GERD symptoms. Has not had any repeat EGD for surveillance of his peptic ulcers. He would like to follow-up with Gastroenterology Vaccines: Up-to-date with 1 COVID vaccine, tetanus vaccine, pneumonia vaccine, Need Flu vaccine. [facility] Medical History PUD (peptic ulcer disease) GI bleed Anxiety and depression Asthma Ulcer Surgical History History of carpal tunnel surgery of right wrist History of testicular surgery History of esophagogastroduodenoscopy (EGD) Family History Mother Diabetes Hypertension Breast cancer Cirrhosis of liver Brother Cirrhosis of liver Father Cancer Esophageal cancer Sister Murmur CHF (congestive heart failure) Social History (Updated 02/18/23 @ 15:36 by Felix Junior PA-C) Housing: Apartment Alcohol intake: current Alcohol intake frequency: holidays/special occasions only Patient Tobacco Use Status: Never used Tobacco e-Cigarette/Vaping Use: Never Used Second Hand Smoke Exposure: No Substance Use Type: Marijuana service: No Current occupational status: unemployed 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 1. Little interest or pleasure in doing things: nearly every day 2. Feeling down, depressed, or hopeless: nearly every day 3. Trouble falling or staying asleep, or sleeping too much: nearly every day 4. Feeling tired or having little energy: nearly every day 5. Poor appetite or overeating: nearly every day 6. Feeling bad about yourself - or that you are a failure or have let yourself or your family down: nearly every day 7. Trouble concentrating on things, such as reading the newspaper or watching television: nearly every day 8. Moving or speaking so slowly that other people could have noticed. Or the opposite - being so fidgety or restless that you have been moving around a lot more than usual: nearly every day 9. Thoughts that you would be better off or of hurting yourself in some way: not at all Total score: 24 Depression Screening Interpretation: Positive Depression Screening Follow-up: Existing condition and In treatment Depression Screening Done: Yes 59426 - PHQ-9 Billing: Yes Source: Developed by Drs. David Horner, Mana Flores, Dexter Arora and colleagues, with an educational jani from [email or web address]. Thrive Questionnaire Date Thrive assessed: 09/04/22 What is your living situation today?: I have a steady place to live AUDIT C Alcohol Use Questionnaire (AUDIT-C) 1. How often do you have a drink containing alcohol?: Never 3. How often do you have six or more drinks on one occasion?: Never Total Score: 0 NATALIE-7 AMB Questionnaire NATALIE-7 Date NTAALIE - 7 assessed: 02/18/23 Feeling nervous, anxious, or on edge: 3 = Nearly every day Not being able to stop or control worryin = Nearly every day Worrying too much about different things: 3 = Nearly every day Trouble relaxin = Nearly every day Being so restless that it is hard to sit still: 3 = Nearly every day Becoming easily annoyed or irritable: 3 = Nearly every day Feeling afraid as if something awful might happen: 3 = Nearly every day Total NATALIE-7 score (0-4 normal; 5-9 mild; 10-14 moderate; 15-21 severe): 21 Source: Developed by Drs. David Horner, Mana Flores, Dexter Arora and colleagues, with an educational jani from [email or web address]. NATALIE-7 Assessment Billing NATALIE-7 Assessment Tool: NATALIE-7 Assessment 28698 Review of Systems Const Denies body aches, Denies chills, Denies excessive sweating, Denies fatigue, Denies fever(s) and Denies headache(s) Eyes Denies blurry vision ENT Denies dysphagia, Denies vertigo, Denies dizziness, Denies headache(s), Denies hearing loss and Denies tinnitus Card Denies chest pain, Denies chest pain with activity, Denies syncope, Denies irregular heart rhythm and Denies dyspnea Resp Denies chest congestion, Denies cough, Denies hemoptysis, Denies dyspnea and Denies wheezing GI Denies abdominal pain, Denies melena, Denies hematochezia, Denies coffee ground emesis, Denies dysphagia, Denies diarrhea, Denies nausea and Denies vomiting Denies difficulty urinating, Denies dysuria, Denies urinary frequency, Denies urinary hesitancy and Denies urinary urgency Musc Denies arthralgias, Denies limited range of motion, Denies muscle cramps and Denies muscle weakness Skin/Breast Denies rash and Denies skin ulcer Neuro Denies Abnormal speech present, Denies confusion, Denies vertigo, Denies dizzine ss, Denies syncope, Denies headache(s), Denies memory loss and Denies seizure- like activity Psych Denies anxiety, Denies confusion, Denies depression, Denies memory loss, Denies panic attacks and Denies paranoia Endo Denies excessive sweating, Denies fatigue, Denies flushing, Denies polydipsia and Denies polyuria Aller/Immun Denies wheezing Physical exam (Primary Care) Vital Signs: Last Vital Signs Pulse 85 02/18/23 15:19 BP 116/78 02/18/23 15:19 Pulse Ox 98 02/18/23 15:19 Oxygen Delivery Method Room Air 02/18/23 15:19 BMI result Body Mass Index 28.1 Tobacco/Smoking Status: Tobacco use Status Tobacco use date assessed 09/04/22 02/18/23 15:29 Patient Tobacco Use Status Never used Tobacco 02/18/23 15:36 e-Cigarette/Vaping Use Never Used 02/18/23 15:36 PHQ-9: PHQ-9 Score PHQ-9: Total score 24 02/18/23 15:29 Depression Screening Interpretation: Positive Depression Screening Follow-up: Existing condition and In treatment Thrive Assessment: Date of Thrive Assessment Date Thrive assessed 09/04/22 02/18/23 15:29 Const General: cooperative, comfortable, no acute distress, alert and awake; No confusion Orientation/consciousness: oriented to person, oriented to place, patient oriented x3 and No confusion HENMT Head: Yes normocephalic Ears: external ears normal and TM's normal bilaterally Face and sinus: No sinus tenderness Mouth: Normal oral and palatal mucosa present and tongue normal Teeth and gingiva: dentition normal and gingiva normal Throat: Yes posterior oropharynx normal, Yes tonsils normal and Yes uvula midline Eyes Conjunctivae: conjunctivae normal Sclerae: sclerae normal Pupils: Equal, round and reactive pupils present EOM: EOMs intact bilaterally Direct Ophthalmoscopy: No no photophobia Neck Neck: Yes no lymphadenopathy, No tender and Yes no JVD Thyroid: Thyroid normal Carotids: no bruits Chest Chest palpation & inspection: no tenderness Resp Effort & Inspection: normal respiratory effort, no audible wheezes, not labored and no stridor Auscultation: no crackles, no rales, no rhonchi and no wheezes Cardio Jugular venous distension: no JVD Rate: regular rate, not bradycardic and not tachycardic Rhythm: regular rhythm Bruits: no carotid bruits Peripheral pulses: Peripheral pulses 2+ throughout GI Inspection: Yes normal to inspection, No abdominal wall ecchymosis and No visible herniation Palpation (GI): Soft to palpation, nontender, no guarding, not rigid and No hepatosplenomegaly present Auscultation: normoactive bowel sounds General: Yes no CVA tenderness Back/Spine/Pelvis Back: no CVA tenderness and No back tenderness Cervical Spine: cervical ROM normal Thoracic/Lumbar Spine: thoracic and lumbar spine normal to inspection, straight leg raise negative bilaterally, No thoraco-lumbar ROM limited and No lumbar spinal tenderness Skin Lesions: no lesions Rashes: no rashes Wounds: no wounds Neuro General: oriented to person, oriented to place, patient oriented x3, CN's II-XI intact bilaterally and No confusion Cranial nerves: Yes Equal, round and reactive pupils present and Yes Normal accommodation reflex present Cognition (Neuro): normal cognition Speech: No Abnormal speech present Gait exam (Neuro): Normal gait present Motor exam (neuro): 5/5 motor strength present throughout Extrem Right upper extremity: full ROM; no cyanosis Left upper extremity: full ROM; no cyanosis Right lower extremity: no edema Left lower extremity: no edema Psych Appearance: grossly normal Mental Status: mental status grossly normal Affect: normal affect Attitude: cooperative Thought process: Normal thought process present Assessment and Plan Assessment & Plan (1) Annual physical exam: Code(s): Z00.00 - Encounter for general adult medical examination without abnormal findings (2) Microscopic hematuria: Code(s): R31.29 - Other microscopic hematuria Plan: Patient seems to have chronic microscopic hematuria, will send for urine cytology to evaluate for atypical cells. (3) NATALIE (generalized anxiety disorder): Code(s): F41.1 - Generalized anxiety disorder Plan: Patient's NATALIE-7 score positive for moderate-severe anxiety which has been existing condition for him Patient's anxiety has been fairly well controlled with current dose of Effexor. Is not interested in speaking with a mental health therapist at this time. (4) PUD (peptic ulcer disease): Code(s): K27.9 - Peptic ulcer, site unspecified, unspecified as acute or chronic, without hemorrhage or perforation Plan: Patient does have history of peptic ulcer disease thus advised to reduce his NSAID use. He would like to reestablish care with Gastroenterology for a repeat and dusk be for surveillance. He has noted some weight loss and decreased appetite which he attributes to his peptic ulcer disease. Will supply patient with antiemetic to help him eat better. Continues on PPI therapy (5) Bilateral hand pain: Code(s): M79.641 - Pain in right hand; M79.642 - Pain in left hand Plan: Continues on bilateral hand pain will test for rheumatoid (6) MDD (major depressive disorder): Code(s): F32.9 - Major depressive disorder, single episode, unspecified Qualifiers: Major depression recurrence: recurrent Active/Remission status: currently active Major depression episode severity: moderate Qualified Code(s): F33.1 - Major depressive disorder, recurrent, moderate Plan: Patient's PHQ-9 score positive for moderate to severe depression. He is not interested in speaking with a mental therapist though continues on venlafaxine with decent affect on his anxiety and depression. He on off does have some personal/family issues that cause a more anxiety or depression. Orders: Orders Urine Cytology 02/18/23 R31.29 - Other microscopic hematuria Complete Blood Count no Diff 02/18/23 K27.9 - Peptic ulcer, site unspecified, unspecified as acute or chronic, without hemorrhage or perforation Comprehensive [place]. Panel Fast 02/18/23 Z13.1 - Encounter for screening for diabetes mellitus Rheumatoid Factor 02/18/23 G56.10 - Other lesions of median nerve, unspecified upper limb, M79.643 - Pain in unspecified hand Influenza [id number] Immunization 02/18/23 Z23 - Encounter for immunization Lipid Panel 02/18/23 E78.9 - Disorder of lipoprotein metabolism, unspecified UA CC w/rflx Micro + Cult 02/18/23 R30.0 - Dysuria, R31.29 - Other microscopic hematuria TRACY Reflex Titer and Pattern 02/18/23 G56.10 - Other lesions of median nerve, unspecified upper limb, M79.643 - Pain in unspecified hand Anti DNA DS Antibody 02/18/23 G56.10 - Other lesions of median nerve, unspecified upper limb, M79.643 - Pain in unspecified hand Cyclic Citrullinated Peptide 02/18/23 G56.10 - Other lesions of median nerve, unspecified upper limb, M79.643 - Pain in unspecified hand Referrals Gastroenterology Referral K27.9 - Peptic ulcer, site unspecified, unspecified as acute or chronic, without hemorrhage or perforation Medications: New flu vacc [id number] 6mos up(PF) 0.5 mL IM ONCE 0.5 mL 0RF Z23 - Encounter for immunization ondansetron 8 mg PO Q12H 30 days PRN 60 tabs 3RF nausea and vomiting K27.9 - Peptic ulcer, site unspecified, unspecified as acute or chronic, without hemorrhage or perforation Coding Level of Care Code Est Pt Prev Care 40-64y(71181) Diagnoses Annual physical exam Z00.00 Microscopic hematuria R31.29 NATALIE (generalized anxiety disorder) F41.1 PUD (peptic ulcer disease) K27.9 Bilateral hand pain M79.641; M79.642 Moderate episode of recurrent major depressive disorder F33.1 Major depression recurrence: recurrent Active/Remission status: currently active Major depression episode severity: moderate Additional Codes NATALIE-7 Assessment Billing - NATALIE-7 Assessment Tool: NATALIE-7 Assessment 56407 ([id number])
== END 2023-02-18 16:01 | disposition home or self-care (01) ==
PROVIDERS: PCP Physician Assistant; Visit Provider Physician Assistant
DX: Z00.00 Encounter for general adult medical examination without abnormal findings (principal); R31.29 Other microscopic hematuria; F33.1 Major depressive disorder, recurrent, moderate; F41.1 Generalized anxiety disorder; Z23 Encounter for immunization; K27.9 Peptic ulcer, site unspecified, unspecified as acute or chronic, without hemorrhage or perforation; M79.641 Pain in right hand; M79.642 Pain in left hand
CPT/HCPCS: 90471; 90686; 96127; 99396

== ENCOUNTER → 2023-07-10 12:18 | Outpatient (REF) | payer OTHER, SELFPAY ==
--- NOTE | 2023-07-10 12:28 | ECG_ITS ---
Test Reason : chest pain Blood Pressure : / mmHG Vent. Rate : 060 BPM Atrial Rate : 060 BPM P-R Int : 138 ms QRS Dur : 088 ms QT Int : 408 ms P-R-T Axes : 052 016 030 degrees QTc Int : 408 ms Normal sinus rhythm Minimal voltage criteria for LVH, may be normal variant ( Sokolow-Koch ) Borderline ECG When compared with ECG of 09-APR-2020 22:22, QT has shortened Referred By: Felix Junior Electronically Signed By:Ceasar Meza
[2023-07-10 13:45] LABS: Urine Cytology See Pathology rpt
[2023-07-10 13:52] LABS: Appearance Urine Cloudy; Color Urine Yellow; Glucose Urine UA Negative (Negative); Leukocyte Esterase Urine Negative (Negative); Nitrite Urine Negative (Negative); PH 7.5 (5.0-9.0); Urine Blood Negative (Negative); Urine Ketones Negative (Negative); Urine Protein Negative (Neg-Trace)
[2023-07-10 14:01] LABS: Hematocrit 45.5 % (42.0-52.0); Mean Corpuscular Hemoglobin 31.3 pg (27.0-33.0); Mean Corpuscular Volume 94.8 fL (80.0-98.0); Mean Platelet Volume 10.9 fL (9.4-12.4); Platelet Count 269 X10*3/uL (160-400); Red Cell Distribution Width 12.3 % (11.0-16.0); White Blood Count 9.1 X10*3/uL (4.8-10.8)
[2023-07-10 14:22] LABS: Rheumatoid Factor < 13.0 IU/mL (<15.0)
[2023-07-10 14:33] LABS: Alanine Aminotransferase 40 U/L (0-40); Albumin Level 4.5 g/dL (3.5-5.0); Alkaline Phosphatase 81 U/L (39-117); Anion Gap 13 (12-20); Aspartate Amino Transferase 31 U/L (5-37); Bilirubin Total 0.4 mg/dL (0.0-1.0); Blood Urea Nitrogen 13 mg/dL (9-16); Calcium 9.7 mg/dL (8.4-10.2); Carbon Dioxide 27 mmol/L (22-29); Chloride 104 mmol/L (96-108); Cholesterol 187 mg/dL (<200); Estimated Glomerular Filt Rate > 60; Glucose Fasting 80 mg/dL (60-99); HDL Cholesterol 50 mg/dL (>40); LDL Cholesterol Calculated 113 mg/dL (<100); Potassium 3.8 mmol/L (3.3-5.1); Sodium 140 mmol/L (135-145); Total Protein 7.8 g/dL (6.5-8.0); Triglycerides 124 mg/dL (<150)
[2023-07-11 18:34] LABS: Cyclic Citrullinated Peptide <16 UNITS
[2023-07-11 19:37] LABS: Anti DNA DS Antibody <1 IU/mL
[2023-07-15 09:14] LABS: Anti Nuclear Antibody Screen NEGATIVE (NEGATIVE)
== END ==
LOC: HO.CARD 12:18
PROVIDERS: PCP Physician Assistant; Visit Provider Physician Assistant
DX: R07.9 Chest pain, unspecified (principal); R31.29 Other microscopic hematuria; G56.10 Other lesions of median nerve, unspecified upper limb; M79.643 Pain in unspecified hand; E78.9 Disorder of lipoprotein metabolism, unspecified; K27.9 Peptic ulcer, site unspecified, unspecified as acute or chronic, without hemorrhage or perforation; Z13.1 Encounter for screening for diabetes mellitus; R30.0 Dysuria
CPT/HCPCS: 36415; 80053; 80061; 81003; 85027; 86038; 86200; 86225; 86431; 88112; 93005

== ENCOUNTER → 2023-07-10 12:28 | Outpatient (BNV) | payer OTHER, SELFPAY | PROVIDERS: PCP Physician Assistant; Visit Provider Internal Medicine Cardiovascular Disease | DX: R07.9 Chest pain, unspecified (principal) | CPT/HCPCS: 93010 ==

== ENCOUNTER 2023-07-17 14:01 | Outpatient (AMB) | payer OTHER, SELFPAY ==
[2023-07-17 14:07] VITALS: BP 120/84; PULSE 75; O2SAT 95; BMI 27.8
--- NOTE | 2023-07-17 14:07 | A.OFFPC_ITS ---
Vital Signs 07/17/23 14:07 Height 5 ft 8 in Weight 183 lb 2 oz BMI 27.8 BP 120/84 Blood Pressure Location Lt brachial Position Sitting Pulse 75 Pulse Source Pulse Oximeter Pulse Oximetry (%) 95 Oxygen Delivery Method Room Air Intake Visit Reasons: holter monitor/ Pt feels heart fluttering Escapement Matcher Required: No Accompanied by: Self / Same As Patient Allergies baclofen Adverse Reaction (Intermediate, Verified 07/17/23 14:15) Ineffective tizanidine Adverse Reaction (Mild, Verified 07/17/23 14:15) Ineffective venlafaxine Adverse Reaction (Mild, Verified 07/17/23 14:15) Not effective Tobacco use date assessed: 07/17/23 Dental Screening Dental Screen Date: 07/17/23 Did you have a dental visit in the last 12 months?: Yes Did you have a dental problem in the last 6 months where you did not have access to dental care?: No Was dental information given to patient?: Patient has dentist HPI holter monitor/ Pt feels heart fluttering HPI Details Patient is a 42-year-old male here today for problem visit. He reports he has been experiencing intermittent episodes of heart palpitations worse at night. Was sent for a 12 lead EKG though no significant arrhythmia noted. Recent Labs have been stable. He is interested in Holter monitor to evaluate for any intermittent significant arrhythmia. He also is somewhat more depressed and anxious as he has not been able to work due to his upper extremity pain and loss of strength. Has had bilateral cubital tunnel release surgeries which seemingly have not been to effective. He did have a cervical spine MRI in 2021 showing--> [id number] left and moderate right-sided bony neural foraminal stenosis at C6-C7 and mild left-sided neural foraminal stenosis at C3-C4. 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 Has done occupational therapy though made no difference. Currently using tramadol and acetaminophen which has been minimally helpful in reducing his pain. He is interested in getting a 2nd opinion from [facility] and pain management to help reduce his upper extremity pain. As he has not currently able to work due to his upper extremity pain and weakness he is asking for a letter for disability. COUNT INCLUDES THE [facility] Medical History PUD (peptic ulcer disease) GI bleed Anxiety and depression Asthma Ulcer Surgical History History of carpal tunnel surgery of right wrist History of testicular surgery History of esophagogastroduodenoscopy (EGD) Family History Mother Diabetes Hypertension Breast cancer Cirrhosis of liver Brother Cirrhosis of liver Father Cancer Esophageal cancer Sister Murmur CHF (congestive heart failure) Social History Housing: Apartment Alcohol intake: current Alcohol intake frequency: holidays/special occasions only Patient Tobacco Use Status: Never used Tobacco e-Cigarette/Vaping Use: Never Used Second Hand Smoke Exposure: No Substance Use Type: Marijuana service: No Current occupational status: unemployed 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 1. Little interest or pleasure in doing things: nearly every day 2. Feeling down, depressed, or hopeless: nearly every day 3. Trouble falling or staying asleep, or sleeping too much: nearly every day 4. Feeling tired or having little energy: nearly every day 5. Poor appetite or overeating: nearly every day 6. Feeling bad about yourself - or that you are a failure or have let yourself or your family down: nearly every day 7. Trouble concentrating on things, such as reading the newspaper or watching television: more than half the days 8. Moving or speaking so slowly that other people could have noticed. Or the opposite - being so fidgety or restless that you have been moving around a lot more than usual: nearly every day 9. Thoughts that you would be better off or of hurting yourself in some way: not at all Total score: 23 Depression Screening Interpretation: Positive Depression Screening Follow-up: Existing condition Depression Screening Done: Yes 32272 - PHQ-9 Billing: Yes Source: Developed by Drs. David Horner, Mana Flores, Dexter Arora and colleagues, with an educational jani from [employer]. Thrive Questionnaire Date Thrive assessed: 07/17/23 I am a: Patient What is your living situation today?: I have a steady place to live Within the past 12 months, did the food you bought not last and you didn't have the money to get more?: Never true Within the past 12 months, did you worry whether your food would run out before you got money to buy more?: Never true Do you have trouble paying for medicines?: No Do you have trouble getting transportation to medical appointments?: No Do you have trouble paying your heating and electricity bill?: No Do you have trouble taking care of your child, family member or friend?: No Do you have trouble with day-to-day activities such as bathing, preparing meals, shopping, managing finances, etc.?: No Are you currently unemployed and looking for a job?: No Are you interested in more education?: No Please select the resources that you would like help with: None Currently or been in a relationship where the following occur: no concerns reported THRIVE Score: 0 AUDIT C Alcohol Use Questionnaire (AUDIT-C) 1. How often do you have a drink containing alcohol?: Monthly or less 2. How many drinks containing alcohol do you have on a typical day when you are drinking?: 1 or 2 3. How often do you have six or more drinks on one occasion?: Never Total Score: 1 NATALIE-7 AMB Questionnaire NATALIE-7 Date NATALIE - 7 assessed: 07/17/23 Feeling nervous, anxious, or on edge: 3 = Nearly every day Not being able to stop or control worryin = Nearly every day Worrying too much about different things: 3 = Nearly every day Trouble relaxin = Nearly every day Being so restless that it is hard to sit still: 3 = Nearly every day Becoming easily annoyed or irritable: 3 = Nearly every day Feeling afraid as if something awful might happen: 3 = Nearly every day Total NATALIE-7 score (0-4 normal; 5-9 mild; 10-14 moderate; 15-21 severe): 21 Source: Developed by Drs. David Horner, Mana Flores, Dexter Arora and colleagues, with an educational jani from [employer] NATALIE-7 Assessment Billing NATALIE-7 Assessment Tool: NATALIE-7 Assessment 59083 Review of Systems Const Denies headache(s) Eyes Denies loss of vision ENT Denies vertigo, Denies dizziness, Denies headache(s) and Denies sore throat Card Denies chest pain, Denies leg edema and Denies lightheadedness Resp Denies cough, Denies hemoptysis and Denies wheezing GI Denies abdominal pain, Denies melena, Denies constipation, Denies diarrhea and Denies vomiting Denies dysuria, Denies urinary frequency and Denies urinary urgency Musc Denies arthralgias, Denies joint swelling, Denies numbness and Denies tingling Neuro Denies Abnormal speech present, Denies behavioral changes, Denies vertigo, Denies dizziness, Denies headache(s), Denies loss of vision, Denies memory loss, Denies numbness and Denies tingling Psych Denies anxiety, Denies behavioral changes, Denies depression, Denies memory loss and Denies panic attacks Ward/Lymph Denies easy bleeding and Denies easy bruising Aller/Immun Denies wheezing Physical exam (Primary Care) Vital Signs: Last Vital Signs Pulse 75 07/17/23 14:07 BP 120/84 07/17/23 14:07 Pulse Ox 95 07/17/23 14:07 Oxygen Delivery Method Room Air 07/17/23 14:07 BMI result Body Mass Index 27.8 Tobacco/Smoking Status: Tobacco use Status Tobacco use date assessed 07/17/23 07/17/23 14:17 Patient Tobacco Use Status Never used Tobacco 07/17/23 14:10 e-Cigarette/Vaping Use Never Used 07/17/23 14:10 PHQ-9: PHQ-9 Score PHQ-9: Total score 23 07/17/23 14:21 Depression Screening Interpretation: Positive Depression Screening Follow-up: Existing condition Thrive Assessment: Date of Thrive Assessment Date Thrive assessed 07/17/23 07/17/23 14:10 Currently or been in a relationship where the following occur: no concerns reported Const General: healthy appearing, no acute distress, alert and awake Nutritional Appearance: well nourished Orientation/consciousness: oriented to person, oriented to place and oriented to time HENMT Ears: TM's normal bilaterally General nose exam: Normal nasal mucous membranes and turbinates present Eyes Conjunctivae: conjunctivae normal Sclerae: sclerae normal Pupils: Equal, round and reactive pupils present Neck Neck: Yes no lymphadenopathy and Yes no JVD Thyroid: Thyroid normal Carotids: no bruits Resp Effort & Inspection: normal respiratory effort and not tachypneic Auscultation: no crackles, no rales, no rhonchi and no wheezes Cardio Rate: regular rate Rhythm: regular rhythm Heart sounds: no murmurs and normal S1 and S2 GI Palpation (GI): Soft to palpation, nontender, no hepatomegaly and no splenomegaly Auscultation: normal bowel sounds Skin General skin exam: no rashes or lesions noted and dry skin Neuro General: oriented to person, oriented to place and oriented to time Cranial nerves: Yes Equal, round and reactive pupils present Speech: No Abnormal speech present Gait exam (Neuro): Normal gait present Motor exam (neuro): no tremor noted Extrem Other: 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 SOME THENAR WASTING IN THE RIGHT HAND. Right upper extremity: full ROM Left upper extremity: full ROM Right lower extremity: full ROM; no edema Left lower extremity: full ROM; no edema Psych Mental Status: mental status grossly normal Speech and movement: Normal speech and movement present Affect: normal affect Attitude: cooperative Thought process: Normal thought process present Assessment and Plan Assessment & Plan (1) Heart palpitations: Code(s): R00.2 - Palpitations Plan: Due to patient's frequent heart palpitations will send for a cardiac event monitor to evaluate for any significant arrhythmias or pauses. (2) NATALIE (generalized anxiety disorder): Code(s): F41.1 - Generalized anxiety disorder Plan: Patient has been experiencing more anxiety as of late. Most of his anxiety and depression stem now from not being able to provide for his family due to not working.. Continues on sertraline 50 mg though feels it is not as effective as it once was. She has not interested in any more medication at this time. (3) Cubital tunnel syndrome on right: Code(s): G56.21 - Lesion of ulnar nerve, right upper limb Plan: Patient has bilateral cubital tunnel syndrome that has been surgically fixed though he has seemingly not better. Has not been able to work due to his continued pain and loss of function in his bilateral hands worsen his right. He would like a 2nd opinion from a orthopedic surgeon. He did get an MRI of her cervical spine that did show multiple disc protrusions in his neck. (4) Cervical stenosis of spinal canal: Code(s): M48.02 - Spinal stenosis, cervical region Plan: Continues to have right upper extremity weakness and numbness in his right hand. Wakes up with a stiff neck on daily occurrence. Cervical spine MRI in 2021 showing multilevel disc herniation and moderate stenosis. Due to patient's continued symptoms and worsening right upper extremity numbness will try for new MRI. Will send for 2nd opinion for orthopedics for his cubital tunnel syndrome on right side and pain management evaluation for pain reduction modality for his right upper extremity chronic pain. Orders: Orders ECG 5 day holter monitor 07/17/23 R00.2 - Palpitations MR cervical spine wo con 07/17/23 M48.02 - Spinal stenosis, cervical region Referrals Pain Management Referral G56.21 - Lesion of ulnar nerve, right upper limb Gastroenterology Referral K27.9 - Peptic ulcer, site unspecified, unspecified as acute or chronic, without hemorrhage or perforation Orthopedics Referral G56.21 - Lesion of ulnar nerve, right upper limb Medications: New pantoprazole 40 mg PO DAILY 90 days 90 tabs 1RF K27.9 - Peptic ulcer, site unspecified, unspecified as acute or chronic, without hemorrhage or perforation Discontinued esomeprazole magnesium Discontinued Reason: Doctor's Order 20 mg PO DAILY 90 days 90 caps 1RF K27.9 - Peptic ulcer, site unspecified, unspecified as acute or chronic, without hemorrhage or perforation Coding Level of Care Code Est Pt Level 4 (51831) Diagnoses Heart palpitations R00.2 NATALIE (generalized anxiety disorder) F41.1 Cubital tunnel syndrome on right G56.21 Cervical stenosis of spinal canal M48.02 Additional Codes NATALIE-7 Assessment Billing - NATALIE-7 Assessment Tool: NATALIE-7 Assessment 29248 ([id number])
== END 2023-07-17 14:46 | disposition home or self-care (01) ==
PROVIDERS: PCP Physician Assistant; Visit Provider Physician Assistant
DX: R00.2 Palpitations (principal); F41.1 Generalized anxiety disorder; G56.21 Lesion of ulnar nerve, right upper limb; M48.02 Spinal stenosis, cervical region
CPT/HCPCS: 99214

== ENCOUNTER → 2023-07-30 10:14 | Outpatient (REF) | payer OTHER, SELFPAY ==
--- NOTE | 2023-07-30 10:18 | HM_ITS ---
Conclusion: 1. Patient was monitored for total period of 4 days and 22 hours 2. Baseline was normal sinus with average heart of 71 beats per minute 3. No significant pauses or arrhythmias noted 4. No patient reported events MTDD
== END ==
LOC: HO.CARD 10:14
PROVIDERS: PCP Physician Assistant; Visit Provider Physician Assistant
DX: R00.2 Palpitations (principal)
CPT/HCPCS: 93242

== ENCOUNTER → 2023-07-30 10:18 | Outpatient (BNV) | payer OTHER, SELFPAY | PROVIDERS: PCP Physician Assistant; Visit Provider Internal Medicine Cardiovascular Disease | DX: I49.3 Ventricular premature depolarization (principal) | CPT/HCPCS: 93244 ==

== ENCOUNTER 2023-07-31 13:04 | Outpatient (AMB) | payer OTHER, SELFPAY ==
[2023-07-31 13:21] VITALS: BP 129/73; PULSE 84; RESP 16; O2SAT 98; BMI 28.2
--- NOTE | 2023-07-31 13:21 | MHC.OFFVIS ---
Vital Signs 07/31/23 13:21 Height 5 ft 8 in Weight 185 lb 7 oz BMI 28.2 BP 129/73 Blood Pressure Location Lt brachial Respiration 16 Pulse 84 Pulse Source Pulse Oximeter Pulse Oximetry (%) 98 Oxygen Delivery Method Room Air Intake Visit Reasons: Lesion of ulnar nerve, right upper limb Allergies baclofen Adverse Reaction (Intermediate, Verified 07/31/23 13:14) Ineffective tizanidine Adverse Reaction (Mild, Verified 07/31/23 13:14) Ineffective venlafaxine Adverse Reaction (Mild, Verified 07/31/23 13:14) Not effective HPI Comments Details: Huy is a very pleasant 42-year-old male who presents the office today for evaluation management of his chronic neck and right upper extremity pain Patient reports he has been suffering with this pain for greater than 20 years. He is status post surgery at C6-7 performed 12/21/2021. He is unsure exactly what the surgery was. He reports midline cervical neck pain with radiation down the posterior aspect of the right arm to the hand. He endorses weakness, numbness and burning of the entire right upper extremity including the entire hand. There was no improvement after surgery. If anything he reports the symptoms became worse. Patient reports he has also had right carpal tunnel and cubital tunnel release without improvement of his symptoms. He completed physical therapy and occupational therapy with no change. He has tried Tylenol, nonsteroidal anti-inflammatory medications with no improvement. The only thing that he has found some relief with is the prescription tramadol that is provided by his primary care doctor Denies previous history of chiropractor, acupuncture, massage or injections. Pain today is rated as an 8/10, constant In terms of muscle damage condition is described as aching, cramping, numb, throbbing, stabbing, sharp, tingling, pins and needles. Pain is negatively impacting patient's enjoyment of life, general activity, mood, normal work, recreational activity, relationships with people, sleep and walking. Patient denies allergy to contrast dye. Denies implantable devices. Denies current use of blood thinners. [facility] Medical History PUD (peptic ulcer disease) GI bleed Anxiety and depression Asthma Ulcer Surgical History History of carpal tunnel surgery of right wrist History of testicular surgery History of esophagogastroduodenoscopy (EGD) Family History Mother Diabetes Hypertension Breast cancer Cirrhosis of liver Brother Cirrhosis of liver Father Cancer Esophageal cancer Sister Murmur CHF (congestive heart failure) Social History Housing: Apartment Alcohol intake: current Alcohol intake frequency: holidays/special occasions only Patient Tobacco Use Status: Never used Tobacco e-Cigarette/Vaping Use: Never Used Second Hand Smoke Exposure: No Substance Use Type: Marijuana service: No Current occupational status: unemployed 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 Answers questions appropriately. Fully engaged in examination. Skin: warm, dry, intact HEENT: Normocephalic. Hearing intact. Cardiac: External chest normal in appearance. Respiratory: No cough, audible wheezing or stridor. Abdomen: without gross distension. MS: No obvious swelling or deformities. Spurling negative Right upper extremity strength 4/5, left upper extremity strength 5/5 elvey's positive on the right Tender to palpation midline cervical vertebrae and right side cervical paraspinal muscles Neurological: Oriented to person, place, time and situation. Thought process intact. No gait abnormalities appreciated. Psychiatric: Appropriate mood and affect. Good judgment and insight. Assessment & Plan Assessment & Plan (1) Cervical radiculopathy: Code(s): M54.12 - Radiculopathy, cervical region Category: Medical (2) Cervical post-laminectomy syndrome: Code(s): M96.1 - Postlaminectomy syndrome, not elsewhere classified Category: Medical Plan Huy is a very pleasant 42-year-old male who presented to the office today for evaluation management of his chronic neck and right upper extremity pain History, physical exam and provocative testing consistent with cervical radiculopathy. MRI cervical spine with contrast ordered for further evaluation. Patient is requesting MRI at [facility] due to the proximity to his home. Continue with tramadol as prescribed by primary care doctor Pending results of MRI will plan for transforaminal epidural steroid injection versus referral to Neurosurgery. All questions and concerns were answered, patient agrees with the plan. Follow-up after MRI, sooner if needed Orders: Orders MR cervical spine wo/w con Today M54.12 - Radiculopathy, cervical region, M96.1 - Postlaminectomy syndrome, not elsewhere classified
== END 2023-07-31 13:41 | disposition home or self-care (01) ==
PROVIDERS: PCP Physician Assistant; Visit Provider Registered Nurse Emergency
DX: M54.12 Radiculopathy, cervical region (principal); M96.1 Postlaminectomy syndrome, not elsewhere classified
CPT/HCPCS: 99204

== ENCOUNTER → 2023-07-31 13:04 | Outpatient (BNVA) | payer OTHER, SELFPAY | PROVIDERS: PCP Physician Assistant; Visit Provider Registered Nurse Emergency | DX: M54.12 Radiculopathy, cervical region (principal); M96.1 Postlaminectomy syndrome, not elsewhere classified | CPT/HCPCS: 99202 ==

== ENCOUNTER 2023-09-16 09:30 | Outpatient (AMB) | payer OTHER, SELFPAY ==
--- NOTE | 2023-09-16 09:39 | A.OFFVIS_ITS ---
Vital Signs 09/16/23 09:40 Height 5 ft 8 in Weight 168 lb BMI 25.5 BP 109/59 L Blood Pressure Location Lt brachial Position Sitting Pulse 76 Intake Visit Reasons: Peptic Ulcer Intake Note: Patient new consult for Peptic Ulcer Patient cc: Nauseas, abdominal pain/bloating, acid reflex with burning sensation, between diarrhea and constipation and some swallowing problems. Leadership Development Consultant Required: No Accompanied by: Self / Same As Patient Allergies baclofen Adverse Reaction (Intermediate, Verified 09/16/23 09:38) Ineffective tizanidine Adverse Reaction (Mild, Verified 09/16/23 09:38) Ineffective venlafaxine Adverse Reaction (Mild, Verified 09/16/23 09:38) Not effective Medication List - Last Reconciled 09/16/23 by Mariely Bella PA-C acetaminophen ER 650 mg PO Q12H 30 days albuterol sulfate 90 mcg/actuation 1 inh inhalation QID PRN 30 days hydroxyzine HCl 10 mg PO BID PRN 30 days ondansetron 8 mg PO Q12H PRN 30 days pantoprazole 40 mg PO DAILY 90 days sertraline 50 mg PO DAILY 30 days tramadol 100 mg (2 x 50 mg) PO BID PRN 30 days HPI Comments Details: A 42 y/o male hx of ulcers- says he was treated in the past-with medicine- omeprazole was the best tx. He had an EGD years ago- Pantoprazole not helpful- Appetite decreased- due to increased sx- when he eats- No N/V/ hematemisis, abdominal pain- fever or chills PFSH Medical History (Updated 09/16/23 @ 10:18 by Mariely Bella PA-C) PUD (peptic ulcer disease) GI bleed Anxiety and depression Asthma Ulcer Surgical History History of carpal tunnel surgery of right wrist History of testicular surgery History of esophagogastroduodenoscopy (EGD) Family History Mother Diabetes Hypertension Breast cancer Cirrhosis of liver Brother Cirrhosis of liver Father Cancer Esophageal cancer Sister Murmur CHF (congestive heart failure) Social History Housing: Apartment Alcohol intake: current Alcohol intake frequency: holidays/special occasions only Patient Tobacco Use Status: Never used Tobacco e-Cigarette/Vaping Use: Never Used Second Hand Smoke Exposure: No Substance Use Type: Marijuana service: No Current occupational status: unemployed 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 Cognitive needs: No Hearing needs: No Vision needs: No Review of Systems Const All systems reviewed & are unremarkable except as noted in HPI and below Card Denies chest pain and Denies dyspnea Resp Denies dyspnea Physical Exam Vital Signs: Last Vital Signs Pulse 76 09/16/23 09:40 BP 109/59 L 09/16/23 09:40 BMI result Body Mass Index 25.5 Const General: cooperative, healthy appearing, comfortable and no acute distress Orientation/consciousness: patient oriented x3 Limitations: no limitations Eyes Sclerae: sclerae normal Resp Effort & Inspection: normal respiratory effort and able to speak in complete sentences Auscultation: clear to auscultation bilaterally Cardio Rate: regular rate Rhythm: regular rhythm Heart sounds: S1 normal heart sound present and S2 normal heart sound present GI Palpation (GI): Soft to palpation and nontender Auscultation: normal bowel sounds Neuro General: patient oriented x3 Extrem General: Yes full ROM Psych Appearance: grossly normal and well kempt Mental Status: mental status grossly normal Speech and movement: Normal speech and movement present Affect: normal affect Attitude: cooperative Thought process: Normal thought process present Thought content: Normal thought content present Results Reviewed Results Reviewed: 07/10/23- no anemia 1013- EGD/ Dr. Craig- superficial gastritis Assessment & Plan Assessment & Plan (1) PUD (peptic ulcer disease): Comment: malika dangelo - Code(s): K27.9 - Peptic ulcer, site unspecified, unspecified as acute or chronic, without hemorrhage or perforation Category: Medical Plan r/o HP carafate ppi Orders: Orders H Pylori Breath Test 2 Weeks A04.8 - Other specified bacterial intestinal infections Medications: New sucralfate 1 g (10 mL) PO QIDACHS 4 weeks PRN 1,000 mL 0RF reflux omeprazole 40 mg (2 x 20 mg) PO DAILY 30 days 60 caps 5RF Patient Instructions: d/c ppi-carafate 1 gm qid reflux precautions HP UBT- in 2 weeks- if positive- tx then may begin omeprazole 40 mg- sent to pharm Call with concerns Coding Level of Care Code New Pt Level 3 (30506) Diagnoses PUD (peptic ulcer disease) K27.9 Time Spent (min) 25
[2023-09-16 09:40] VITALS: BP 109/59; PULSE 76; BMI 25.5
== END 2023-09-16 10:13 | disposition home or self-care (01) ==
PROVIDERS: PCP Physician Assistant; Visit Provider Physician Assistant
DX: K27.9 Peptic ulcer, site unspecified, unspecified as acute or chronic, without hemorrhage or perforation (principal)
CPT/HCPCS: 99203

== ENCOUNTER → 2023-09-16 09:30 | Outpatient (BNVA) | payer OTHER, SELFPAY | PROVIDERS: PCP Physician Assistant; Visit Provider Physician Assistant | DX: K27.9 Peptic ulcer, site unspecified, unspecified as acute or chronic, without hemorrhage or perforation (principal) | CPT/HCPCS: 99202 ==

== ENCOUNTER 2024-09-01 10:33 | Emergency (ER) | payer OTHER, SELFPAY ==
--- NOTE | ~2024-09-01 | US_ITS ---
EXAMINATION: US ABDOMEN LIMITED CLINICAL INFORMATION: Upper abdominal pain.. COMPARISON: July 20, 2019. TECHNIQUE: Real-time ultrasound of the right upper quadrant abdomen, gallbladder is seen grayscale and color Doppler technique. FINDINGS: There is a 3 mm slightly hyperechoic abnormality in the dependent portion of the gallbladder without flow on color Doppler interrogation. No pericholecystic fluid collection or gallbladder wall thickening. Common bile duct measures 3 mm. No ascites. US/US abdomen limited IMPRESSION: 3 mm polyp versus less likely cholelithiasis. No choledocholithiasis. Electronically signed by: Ismael Nielsen MD 09/01/2024 12:20 PM EDT
--- NOTE | ~2024-09-01 | XR_ITS ---
EXAMINATION: XR CHEST 2 VIEWS HISTORY: coughed up blood COMPARISON: Comparison is made with the prior examination dated 08/19/2021. FINDINGS: PA and lateral views of the chest are submitted. The lungs are expanded and clear. There is no pleural effusion, pneumothorax, or pulmonary vascular congestion. The heart is normal in size. The bones are intact. XR/XR chest 2V IMPRESSION: No acute cardiopulmonary abnormality. Electronically signed by: David Coley MD 09/01/2024 11:43 AM EDT
[2024-09-01 11:14] VITALS: BP 129/82; PULSE 71; RESP 16; TEMP 36.2; O2SAT 98; BMI 25.2
--- NOTE | 2024-09-01 11:14 | ED.ABDPAIN ---
HPI - Abdominal Pain General Chief Complaint: Abdominal Pain Stated Complaint: Ulcer- Abd Pain, Spitting up Blood Time Seen by Provider: 09/01/24 12:44 History of Present Illness ED Provider: Marisa Yuen PA-C HPI narrative: 43 y.o male with a history of GERD and peptic ulcer disease presents to the ED with a chief complaint of epigastric, right and left upper quadrant pain that was accompanied by vomit this morning that contained blood. He stated that he was previously taking omeprazole but was unable to obtain his prescription for the last 2 months due to no insurance and financial burdens. The pain is worse when he lies down, and he reports having no appetite with some weight loss due to lack of eating. When he does eat the pain lessens for a few hours then returns. He states that his stool has been noise abatement engineer in color the last 2 months. He denies alcohol and tobacco use, endorses marijuana use daily. Patient denies headache, vision changes, ear pain, trouble swallowing, chest pain, dizziness, or shortness of breath. Denies extremity pain and urinary changes. MD elicited complaint: abdominal pain Pertinent past history: other (PUD, GERD) Onset (ago): month(s) Pain Consistency: intermittent Location: epigastric, LUQ and RUQ Severity: moderate Quality: aching Radiation: none Migration to: no migration Exacerbating factors: vomiting and other (laying down) Relieving factors: eating and medication (omeprazole) Context: history of similar episodes Associated symptoms: vomiting (this morning ) Treatments prior to arrival: other Related Data Previous Rx's ?Medication ?Instructions ?Recorded acetaminophen 650 mg 650 mg PO Q12H 30 days #60 tabs 08/17/20 tablet,extended release ondansetron 8 mg disintegrating 8 mg PO Q12H PRN nausea and 02/18/23 tablet vomiting 30 days #60 tabs pantoprazole 40 mg tablet,delayed 40 mg PO DAILY 90 days #90 tabs 07/17/23 release sucralfate 100 mg/mL oral 1 g (10 mL) PO QIDACHS PRN reflux 11/27/23 suspension 4 weeks #1,000 mL albuterol sulfate 90 mcg/actuation 1 inh inhalation QID PRN shortness 12/08/23 aerosol inhaler of breath or wheezing 30 days #8.5 grams hydroxyzine HCl 10 mg tablet 10 mg PO BID PRN anxiety 30 days 01/06/24 #60 tabs sertraline 50 mg tablet 50 mg PO DAILY 30 days #30 tabs 02/09/24 tramadol 50 mg tablet 100 mg (2 x 50 mg) PO BID pain 30 03/15/24 days #120 tabs omeprazole 20 mg capsule,delayed 40 mg (2 x 20 mg) PO DAILY #180 07/19/24 release caps pantoprazole 40 mg tablet,delayed 40 mg PO DAILY #30 tabs 09/01/24 release (Protonix) Allergies Allergy/AdvReac Type Severity Reaction Status Date / Time baclofen AdvReac Intermediate Ineffective Verified 09/01/24 11:16 tizanidine AdvReac Mild Ineffective Verified 09/01/24 11:16 venlafaxine AdvReac Mild Not Verified 09/01/24 11:16 effective Review of Systems Review of Systems Yes all other systems are reviewed and are negative [facility] Past Medical History Medical History PUD (peptic ulcer disease) GI bleed Anxiety and depression Asthma Ulcer Surgical History History of carpal tunnel surgery of right wrist History of testicular surgery History of esophagogastroduodenoscopy (EGD) Family History Family History Mother Diabetes Hypertension Breast cancer Cirrhosis of liver Brother Cirrhosis of liver Father Cancer Esophageal cancer Sister Murmur CHF (congestive heart failure) Social History Social History Housing: Apartment Alcohol intake: current Alcohol intake frequency: holidays/special occasions only Patient Tobacco Use Status: Never used Tobacco Smoked in Last 30 Days: No e-Cigarette/Vaping Use: Never Used Second Hand Smoke Exposure: No Use of substances other than those prescribed or required for medical reasons: Yes Substance Use Type: Marijuana Substance Use Frequency: Daily Last Used Substance: Hours (ago) Advance Directives: No Advance Directives Information Provided: Yes Do you have a plan to hurt others: No Plan service: No Current occupational status: unemployed 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 Oriented X3. No acute distress. Head: normocephalic, atraumatic. Eyes: Pupils equal, round and reactive to light. ENT: Pharynx normal. No tonsillar swelling or exudate. Neck: Normal inspection. Neck supple. CVS: Normal heart rate and rhythm. Pulses normal. Respiratory: No respiratory distress. Breath sounds normal. Abdomen: Soft. Tender to palpation in the RUQ, LUQ, epigastric area, +BS x4 Skin: Skin warm and dry. Normal skin color. Normal skin turgor. No rashes. Extremities: No lower extremity edema. No joint swelling. Neuro/psych: Oriented X 3. No motor deficit. No sensory deficit. CN II-XII intact. Normal speech and cognition. Course Course Course Narrative: This is a Rapid Medical Exam performed in triage by Milly Berry PA-C. Full HPI, ROS and PE to be performed by primary ED provider. 43 yo M with a past medical history of GERD, ulcers, MDD, GERD, presenting to the ED c/o abdominal pain, nausea & episode of coughing followed by vomiting up bloody bloody streaked sputum/emesis this AM, bright red blood. denies bloody stools or melena. States has been unable to see a doctor in awhile due to insurance issues. Also reports 10lb wt loss in 1mos. PE: Lungs CTA, nontoxic appearing, abdomen is soft with upper tenderness, no rebound or guarding Plan: EKG, labs, CXR, viral testing, abdomen ultrasound Medical Decision Making Medical Decision Making MDM Narrative: 43 y.o male with a history of GERD and peptic ulcer disease presents to the ED with a chief complaint of epigastric, right and left upper quadrant pain that was accompanied by vomit this morning that contained blood. Differential diagnosis includes but is not limited to PUD, GERD flare, pancreatitis, cholecystitis, upper GI bleed. Vital signs are within normal limits, labs are not suggestive of pancreatitis due to a lipase level of 17. Cholecystitis was ruled out due to ultrasound with an impression of 3 mm polyp versus less likely cholelithiasis and no choledocholithiasis . Chest x-ray was benign with no cardiopulmonary abnormality. Hemoglobin and hematocrit levels were 16 and 46.8%, within limits - no need to go for further testing for a GI bleed. Abdominal exam had tenderness to palpation of the epigastric, right and left upper quadrant pain. PO GI medications were given; omeprazole, Maalox, and viscous lidocaine. Patient was discharged home with new prescription of omeprazole and coupons for prescription medications. He was also advised nutrition parameters to eat upright, avoid spicy and fried foods. A referral to gastroenterology was given for further H. pylori testing and an EGD. Differential Diagnosis Differential Diagnoses: The differential diagnosis associated with the presentation includes Differential diagnosis includes but is not limited to PUD, GERD flare, pancreatitis, cholecystitis, upper GI bleed. Admission/Observation Consideration of admission/observation: Escalation of care including admission/observation considered Lab Data MDM Lab Attestation statement: I reviewed the patient's lab results. see above 09/01/24 11:37 09/01/24 11:37 Labs: Lab Results 09/01/24 Range/Units 11:37 WBC 7.7 (4.8-10.8) X10*3/uL RBC 4.97 (4.60-5.80) X10*6/uL Hgb 16.0 (14.0-18.0) g/dl Hct 46.8 (42.0-52.0) % MCV 94.2 (80.0-98.0) fL MCH 32.2 (27.0-33.0) pg MCHC 34.2 (31.0-36.0) g/dl RDW 12.6 (11.0-16.0) % Plt Count 251 (160-400) X10*3/uL MPV 10.5 (9.4-12.4) fL Immature Gran % (Auto) 0.4 (0.0-0.4) % Neut % (Auto) 63.0 (45-73) % Lymph % (Auto) 25.8 (20-40) % Larue % (Auto) 7.7 (2-11) % Eos % (Auto) 2.3 (0-4) % Baso % (Auto) 0.8 (0-2) % Lymph # (Auto) 2.0 (1.2-4.9) X10*3/uL Larue # (Auto) 0.6 (0.1-1.2) X10*3/uL Eos # (Auto) 0.2 (0.0-0.4) X10*3/uL Baso # (Auto) 0.1 (0.0-0.2) X10*3/uL Abs Immat Gran (auto) 0.03 (0.00-0.03) X10*3/uL Absolute Neuts (auto) 4.9 (2.0-8.3) x10*3/uL Absolute Nucleated RBC 0.000 (0.0-0.012) X10*3/uL Nucleated RBC % (auto) 0.0 (0.0-0.2) /100WBC Sodium 141 (135-145) mmol/L Potassium 3.8 (3.3-5.1) mmol/L Chloride 106 (96-108) mmol/L Carbon Dioxide 27 (22-29) mmol/L Anion Gap 12 (12-20) BUN 13 (9-16) mg/dL Creatinine 0.83 (0.5-1.4) mg/dL Estim Creat Clear Calc 108.7 Estimated GFR > 60 Random Glucose 108 (60-115) mg/dL Calcium 9.4 (8.4-10.2) mg/dL Magnesium 1.9 (1.6-2.6) mg/dL Total Bilirubin 0.8 (0.0-1.0) mg/dL Direct Bilirubin 0.3 (0.0-0.5) mg/dL AST 36 (5-37) U/L ALT 49 H (0-40) U/L Alkaline Phosphatase 67 (39-117) U/L Total Protein 8.0 (6.5-8.0) g/dL Albumin 4.7 (3.5-5.0) g/dL Lipase 17 (8-78) U/L Influenza Type A (PCR) NEGATIVE (Negative) Influenza Type B (PCR) NEGATIVE (Negative) RSV RNA Qual (PCR) NEGATIVE (Negative) SARS-CoV-2 RNA (RT-PCR) NEGATIVE (Negative) Independent Interpretation I performed an independent interpretation of an: Ultrasound Interpretation: no gallstones seen Radiology Impression Discussion of test interpretation with radiology: I have reviewed the radiologist's reading. External Record Review External record reviewed: Outpatient record, Prior outpatient labs and Prior outpatient radiology Tests considered The following testing was considered but not selected: see above Prescription Management I considered prescription management with: Other see above Chronic Conditions Patient?s care impacted by: Other (PUD) Social Determinants Patient?s care significantly limited by Social Determinants of Health including: Other Social Determinant of Health no insurance Medications Administered Discontinued Medications Generic Name Dose Route Start Last Admin Trade Name Freq PRN Reason Stop Dose Admin Al Hydroxide/Mg Hydroxide 30 ml 09/01/24 13:19 09/01/24 13:36 Magnesium Hydrox/Alum Hydrox 30 Ml Oral.Susp PO 09/01/24 13:20 30 ml ONCE ONE Administration Lidocaine HCl 15 ml 09/01/24 13:19 09/01/24 13:36 Lidocaine Hcl Viscous 2 % 15 Ml Solution MUCOUS MEM 09/01/24 13:20 15 ml ONCE ONE Administration Omeprazole 40 mg 09/01/24 13:09/01/24 13:35 Omeprazole 40 Mg Capsule.Dr PO 09/01/24 13:20 40 mg ONCE ONE Administration Critical Care Time Critical Care Time Critical Care Time: No Discharge Plan Discharge Clinical Impression: PUD (peptic ulcer disease) Patient Disposition: Home, Self-Care Instructions: Peptic Ulcer (ED), Diet for Stomach Ulcers and Gastritis (ED) Additional Instructions: Your lab workup today was reassuring. Your ultrasound did not show any evidence of gallbladder infection. Recommend restarting your antacid medication for treatment of peptic ulcer disease. If this is not covered by her insurance you can get [id number] omeprazole, that is the same medication and will do the same thing. Your pain is most likely due to ulcers or gastritis which is and irritation and inflammation of your stomach lining. Start taking the prescribed medication as directed for this. Stick to a bland diet. Avoid foods high in acid, avoid alcohol and NSAID medications like Aleve, Motrin, Advil or ibuprofen. Follow up with your doctor as needed. Follow up with GI doctor if you symptoms persist despite dietary modifications and medication. If you develop new or worsening symptoms call 911 or come back to the ER for further evaluation. Prescriptions: New pantoprazole [Protonix] 40 mg tablet,delayed release (DR/EC) 40 mg PO DAILY Qty: 30 0RF No Action sucralfate 100 mg/mL suspension 1 g PO QIDACHS PRN (Reason: reflux) 28 Days Qty: 1000 1RF albuterol sulfate 90 mcg/actuation HFA aerosol inhaler 1 inh inhalation QID PRN (Reason: shortness of breath or wheezing) 30 Days Qty: 8.5 1RF hydroxyzine HCl 10 mg tablet 10 mg PO BID PRN (Reason: anxiety ) 30 Days Qty: 60 1RF sertraline 50 mg tablet 50 mg PO DAILY 30 Days Qty: 30 6RF tramadol 50 mg tablet 100 mg PO BID 30 Days Qty: 120 3RF omeprazole 20 mg capsule,delayed release(DR/EC) 40 mg PO DAILY Qty: 180 1RF acetaminophen 650 mg tablet extended release 650 mg PO Q12H 30 Days Qty: 60 2RF pantoprazole 40 mg tablet,delayed release (DR/EC) 40 mg PO DAILY 90 Days Qty: 90 1RF ondansetron 8 mg tablet,disintegrating 8 mg PO Q12H PRN (Reason: nausea and vomiting) 30 Days Qty: 60 3RF Referrals: [facility] [place] [facility] [Provider Group] (pud) Felix Junior PA-C [Primary Care Provider] - Stand Alone Forms: Work/School Release Interventions: ED Discharge Assessment Last Done: 09/01/24 14:23 Discharge Date/Time: 09/01/24 14:36 Print Language: [place]
[2024-09-01 11:40] LABS: MANUAL DIFF FLAG NO
[2024-09-01 11:48] LABS: Basophils Absolute Auto 0.1 X10*3/uL (0.0-0.2); Basophils Percent Auto 0.8 % (0-2); Eosinophils Absolute Auto 0.2 X10*3/uL (0.0-0.4); Eosinophils Percent Auto 2.3 % (0-4); Hematocrit 46.8 % (42.0-52.0); Imm Gran Abs Auto 0.03 X10*3/uL (0.00-0.03); Imm Gran Pct Auto 0.4 % (0.0-0.4); Lymphocytes Percent Auto 25.8 % (20-40); Mean Corpuscular HGB Conc 34.2 g/dl (31.0-36.0); Mean Corpuscular Hemoglobin 32.2 pg (27.0-33.0); Mean Corpuscular Volume 94.2 fL (80.0-98.0); Mean Platelet Volume 10.5 fL (9.4-12.4); Monocytes Absolute Auto 0.6 X10*3/uL (0.1-1.2); Monocytes Percent Auto 7.7 % (2-11); Neutrophils Absolute Auto 4.9 x10*3/uL (2.0-8.3); Platelet Count 251 X10*3/uL (160-400); Red Blood Count 4.97 X10*6/uL (4.60-5.80); Red Cell Distribution Width 12.6 % (11.0-16.0); White Blood Count 7.7 X10*3/uL (4.8-10.8)
[2024-09-01 12:04] LABS: Alanine Aminotransferase 49 U/L (0-40); Albumin Level 4.7 g/dL (3.5-5.0); Alkaline Phosphatase 67 U/L (39-117); Anion Gap 12 (12-20); Aspartate Amino Transferase 36 U/L (5-37); Bilirubin Direct 0.3 mg/dL (0.0-0.5); Bilirubin Total 0.8 mg/dL (0.0-1.0); Blood Urea Nitrogen 13 mg/dL (9-16); Calcium 9.4 mg/dL (8.4-10.2); Carbon Dioxide 27 mmol/L (22-29); Chloride 106 mmol/L (96-108); Creatinine Clr Calc Pharmacy 108.7; Estimated Glomerular Filt Rate > 60; Glucose Random 108 mg/dL (60-115); Lipase 17 U/L (8-78); Magnesium 1.9 mg/dL (1.6-2.6); Potassium 3.8 mmol/L (3.3-5.1); Sodium 141 mmol/L (135-145)
[2024-09-01 12:18] LABS: Influenza A PCR NEGATIVE (Negative); Influenza B PCR NEGATIVE (Negative); Resp Syncy Virus RNA Qual PCR NEGATIVE (Negative); SARS COV2 PCR INHOUSE NEGATIVE (Negative)
[2024-09-01 12:45] VITALS: BP 100/63; PULSE 65; RESP 14; TEMP 36.5; O2SAT 98
--- NOTE | 2024-09-01 12:50 | PC.NURSE ---
Patient presents to ED c/o abdomen pain, n/v with blood. Hx ulcers, patient unable to make appointment with PCP. Pain rated 8/10, in upper abdomen radiating down. Abdomen soft and tender to touch. Patient reports having diarrhea yesterday but unsure if blood was present. Patient states Joanne always had stomach pain but this morning the pain increased and I had blood in the vomit . Patient has decreased PO intake related to ABD pain. VSS and up to date. Denies injuries, Denies SOB. No thinners. Call tapia in reach. Plan of care on going
[2024-09-01] MEDS: Omeprazole 40 MG CAPSULE.DR PO (13:35)
[2024-09-01] MEDS: Lidocaine HCl Viscous 2 % 15 ML SOLUTION MUCOUS MEM (13:36)
[2024-09-01] MEDS: Magnesium Hydrox/Alum Hydrox 30 ML ORAL.SUSP PO (13:36)
[2024-09-01 14:22] VITALS: BP 120/70; PULSE 69; RESP 16; TEMP 37.1; O2SAT 98
[2024-09-01 14:23] VITALS: BP 120/70; PULSE 69; RESP 16; TEMP 37.1; O2SAT 98
== END 2024-09-01 14:36 | disposition home or self-care (01) ==
PROVIDERS: Physician Assistant; Emergency Provider Emergency Medicine; PCP Physician Assistant
DX: K27.9 Peptic ulcer, site unspecified, unspecified as acute or chronic, without hemorrhage or perforation (principal); R04.2 Hemoptysis; R10.2 Pelvic and perineal pain; R10.13 Epigastric pain; Z79.899 Other long term (current) drug therapy; Z03.818 Encounter for observation for suspected exposure to other biological agents ruled out
CPT/HCPCS: 0241U; 36415; 71046; 76705; 80048; 80076; 83690; 83735; 85025; 99284

== ENCOUNTER → 2024-09-01 11:18 | Outpatient (BNV) | payer SELFPAY | PROVIDERS: PCP Physician Assistant; Visit Provider Radiology Diagnostic Radiology | DX: K80.81 Other cholelithiasis with obstruction (principal); R04.2 Hemoptysis | CPT/HCPCS: 71046; 76705 ==